=== PATIENT | female | born 1940 | race Caucasian/White ===

== ENCOUNTER → 2017-08-16 | Outpatient (CLI) | payer MEDICARE | LOC: WI 13:39 | PROVIDERS: ATTEND Nurse Practitioner | DX: Z12.31 Encounter for screening mammogram for malignant neoplasm of breast (principal) | CPT/HCPCS: 77063; 77067 ==

== ENCOUNTER → 2017-09-08 | Outpatient (CLI) | payer MEDICARE ==
--- NOTE | 2017-09-08 16:30 | WOMENS IMAGING REPORT ---
EXAM DESCRIPTION: LEFT DIAGNOSTIC MAMMO W/CAD; U/S BREAST UNILAT LIMITED COMPLETED DATE/TIME: 09/08/2017 1:31 pm; 09/08/2017 12:05 pm REASON FOR STUDY: NODULAR DENSITY; LT BREAST N63.23 N63.23 UNSPECIFIED LUMP IN THE LEFT BREAST, LO WER OUTER QUAD COMPARISON: 08/16/2017 and 03/04/2015. TECHNIQUE: True lateral and spot compression MLO and CC images acquired. LIMITATIONS: None. FINDINGS: BREAST: left MASSES: Small round circumscribed mass in the inferior breast. CALCIFICATIONS: No new or suspicious calcifications. ARCHITECTURAL DISTORTION: None. DEVELOPING DENSITY: None. ASYMMETRY: None noted. OTHER: No other significant findings. BREAST ULTRASOUND: TECHNIQUE: Static and dynamic grayscale images acquired of the left breast in the specific areas of c linical/mammographic concern. Selected color Doppler images recorded. ELASTOGRAPHY PERFORMED: No. LIMITATIONS: None. FINDINGS: MASS: Round circumscribed solid mass measuring 5 mm in the 3 to 4 o'clock location. Doppler evaluati on demonstrates flow associated with a mass. ELASTOGRAPHY CHARACTERISTICS: Not applicable. OTHER: No other significant finding. IMPRESSION: Small solid mass. Not present on prior mammogram in 2014. Biopsy should be considered. BREAST DENSITY: a. The breasts are almost entirely fatty. BIRAD: 4 Suspicious. Biopsy should be considered. RECOMMENDATION: RECOMMENDED FOLLOW UP: Birads 4: Biopsy should be performed in the absence of clinic al contraindication. SPECIFIC INTERVENTION/IMAGING/CONSULTATION RECOMMENDED:The suspicious finding(s) amenable to US guide d core/vacuum assisted biopsy. COMMUNICATION:The imaging findings were not discussed with the patient. Her referring provider has be en notified of the findings. COMMENT: The patient has been notified of the results by letter per SA requirements. Additional no tification policies are in place for contacting patient with suspicious or incomplete findings. Quality ID #225: The [employer] recommends an annual screening mammogram for women aged 40 years or over. This facility utilizes a reminder system to ensure that all patients receive reminder letters, and/or direct phone calls for appointments. This includes reminders for routine scr eening mammograms, diagnostic mammograms, or other Breast Imaging Interventions when appropriate. Th is patient will be placed in the appropriate reminder system. The [employer] (ACR) has developed recommendations for screening MRI of the breast s in certain patient populations, to be used in conjunction with mammography. Breast MRI surveillanc e may be appropriate for women with more than 20% lifetime risk of developing breast cancer as deter mined by genetic testing, significant family history of the disease, or history of mantle radiation f or Hodgkins Disease. ACR Practice Guidelines 2008. TECHNICAL DOCUMENTATION: FINDING NUMBER: (1) ASSESSMENT: (1) JOB ID: [id number] [employer]- All Rights Reserved Reading location - IP/workstation name: [email or web address]
--- NOTE | 2017-09-08 16:30 | WOMENS IMAGING REPORT ---
EXAM DESCRIPTION: LEFT DIAGNOSTIC MAMMO W/CAD; U/S BREAST UNILAT LIMITED COMPLETED DATE/TIME: 09/08/2017 1:31 pm; 09/08/2017 12:05 pm REASON FOR STUDY: NODULAR DENSITY; LT BREAST N63.23 N63.23 UNSPECIFIED LUMP IN THE LEFT BREAST, LO WER OUTER QUAD COMPARISON: 08/16/2017 and 03/04/2015. TECHNIQUE: True lateral and spot compression MLO and CC images acquired. LIMITATIONS: None. FINDINGS: BREAST: left MASSES: Small round circumscribed mass in the inferior breast. CALCIFICATIONS: No new or suspicious calcifications. ARCHITECTURAL DISTORTION: None. DEVELOPING DENSITY: None. ASYMMETRY: None noted. OTHER: No other significant findings. BREAST ULTRASOUND: TECHNIQUE: Static and dynamic grayscale images acquired of the left breast in the specific areas of c linical/mammographic concern. Selected color Doppler images recorded. ELASTOGRAPHY PERFORMED: No. LIMITATIONS: None. FINDINGS: MASS: Round circumscribed solid mass measuring 5 mm in the 3 to 4 o'clock location. Doppler evaluati on demonstrates flow associated with a mass. ELASTOGRAPHY CHARACTERISTICS: Not applicable. OTHER: No other significant finding. IMPRESSION: Small solid mass. Not present on prior mammogram in 2014. Biopsy should be considered. BREAST DENSITY: a. The breasts are almost entirely fatty. BIRAD: 4 Suspicious. Biopsy should be considered. RECOMMENDATION: RECOMMENDED FOLLOW UP: Birads 4: Biopsy should be performed in the absence of clinic al contraindication. SPECIFIC INTERVENTION/IMAGING/CONSULTATION RECOMMENDED:The suspicious finding(s) amenable to US guide d core/vacuum assisted biopsy. COMMUNICATION:The imaging findings were not discussed with the patient. Her referring provider has be en notified of the findings. COMMENT: The patient has been notified of the results by letter per SA requirements. Additional no tification policies are in place for contacting patient with suspicious or incomplete findings. Quality ID #225: The [employer] recommends an annual screening mammogram for women aged 40 years or over. This facility utilizes a reminder system to ensure that all patients receive reminder letters, and/or direct phone calls for appointments. This includes reminders for routine scr eening mammograms, diagnostic mammograms, or other Breast Imaging Interventions when appropriate. Th is patient will be placed in the appropriate reminder system. The [employer] (ACR) has developed recommendations for screening MRI of the breast s in certain patient populations, to be used in conjunction with mammography. Breast MRI surveillanc e may be appropriate for women with more than 20% lifetime risk of developing breast cancer as deter mined by genetic testing, significant family history of the disease, or history of mantle radiation f or Hodgkins Disease. ACR Practice Guidelines 2008. TECHNICAL DOCUMENTATION: FINDING NUMBER: (1) ASSESSMENT: (1) JOB ID: [id number] [employer]- All Rights Reserved Reading location - IP/workstation name: [facility]
== END ==
LOC: WI 10:49
PROVIDERS: ATTEND Nurse Practitioner
DX: N63.23 Unspecified lump in the left breast, lower outer quadrant (principal)
CPT/HCPCS: 76642

== ENCOUNTER 2017-12-06 14:01 | Emergency (ER) | payer MEDICARE ==
--- NOTE | 2017-12-06 15:38 | ER Document Report ---
ED Medical Screen (RME) - General Chief Complaint: Leg Pain Stated Complaint: LEG CRAMPING Time Seen by Provider: 12/06/17 15:33 TRAVEL OUTSIDE OF THE [place] IN LAST 30 DAYS: No - HPI Notes: 12/06/17 15:34 Patient is a 76-year-old female with a history of chronic back pain, restless leg syndrome, chronic bilateral lower extremity edema, recent lumpectomy of the left breast (November 14) who presents to the ED complaining of left calf pain and cramping 1 week that worsened over the last day. Pt noted a "knot" to the area the other day. Patient states that she is able to ambulate, but it does worsen her symptoms at times. Patient states that she has not noticed any more swelling than normal. She has otherwise been eating and drinking without any difficulties. She has been urinating normally and having normal bowel movements. She denies any recent illness. Patient has not been out in the sun for long periods of time. Denies any headache, fever, neck pain, URI, sore throat, chest pain, palpitations, syncope, cough, shortness of breath, wheeze, dyspnea, abdominal pain, nausea/vomiting/diarrhea, urinary retention, dysuria, hematuria, loss of control of bowel or bladder, saddle anesthesia, muscle paralysis/weakness, or rash. I have treated and performed a rapid initial assessment of this patient. A comprehensive ED assessment and evaluation of the patient, analysis of test results and completion of medical decision making process will be conducted by additional ED providers. PHYSICAL EXAMINATION: GENERAL: Well-appearing, well-nourished and in no acute distress. A&Ox4. Answers questions appropriately. LUNGS: Breath sounds clear to auscultation bilaterally and equal. No wheezes rales or rhonchi. HEART: Regular rate and rhythm without murmurs, rubs, gallops. Extremities: 2-3+ pitting edema b/l. 1+ pulses b/l, difficult to palpate with the edema. + mild calf tenderness with chantel on the left. NEUROLOGICAL: Normal speech, sensation/motor intact. PSYCH: Normal mood, normal affect. - Related Data Allergies/Adverse Reactions: sulfamethoxazole [From Bactrim] Allergy (Verified 12/09/15 12:09) trimethoprim [From Bactrim] Allergy (Verified 12/09/15 12:09) HTC Allergy (Uncoded 12/09/15 12:09) Past Medical History - Social History Chew tobacco use (# tins/day): No Frequency of alcohol use: None Drug Abuse: None - Past Medical History Cardiac Medical History: Reports: Hx Hypertension Renal/ Medical History: Denies: Hx Peritoneal Dialysis Musculoskeltal Medical History: Reports Hx Arthritis Past Surgical History: Reports: Hx Breast Surgery - left lumpnectomy, Hx Cardiac Surgery - aortic valve replaced, Hx Cholecystectomy, Hx Open Heart Surgery, Hx Orthopedic Surgery - Immunizations Hx Diphtheria, Pertussis, Tetanus Vaccination: Yes Physical Exam - Vital signs Vitals: Temp Pulse Resp BP Pulse Ox 98.6 F 79 20 152/60 H 94 12/06/17 14:13 12/06/17 14:13 12/06/17 14:13 12/06/17 14:13 12/06/17 14:13 Course - Vital Signs Vital signs: Temp Pulse Resp BP Pulse Ox 98.6 F 79 20 152/60 H 94 12/06/17 14:13 12/06/17 14:13 12/06/17 14:13 12/06/17 14:13 12/06/17 14:13 Doctor's Discharge - Discharge Referrals: SCOUT VILLAR NP [Primary Care Provider] - Follow up as needed
[2017-12-06 16:03] LABS: ABSOLUTE BASOPHILS # (AUTO) 0.1 10^3/uL (0.0-0.2); ABSOLUTE EOSINOPHILS # (AUTO) 0.2 10^3/uL (0.0-0.6); ABSOLUTE LYMPHOCYTES (AUTO) 0.9 10^3/uL (0.5-4.7); ABSOLUTE MONOCYTES (AUTO) 0.4 10^3/uL (0.1-1.4); ABSOLUTE NEUT (AUTO) 4.3 10^3/uL (1.7-8.2); EOSINOPHILS % (AUTO) 2.6 % (0-6); HEMATOCRIT 35.2 % (36.0-47.0); HEMOGLOBIN 11.8 g/dL (12.0-15.5); LYMPHOCYTES % (AUTO) 15.2 % (13-45); MEAN CORPUSCULAR HGB CONC 33.7 g/dL (32.0-36.0); MEAN CORPUSCULAR VOLUME 98 fl (80-97); MONOCYTES % (AUTO) 7.1 % (3-13); PLATELET COUNT 253 10^3/uL (150-450); RED BLOOD COUNT 3.58 10^6/uL (3.72-5.28); RED CELL DISTRIBUTION WIDTH 13.9 % (11.5-14.0); SEGMENTED NEUTROPHILS % (AUTO) 74.1 % (42-78); TOTAL CELLS COUNTED % (AUTO) 100 %; WHITE BLOOD COUNT 5.8 10^3/uL (4.0-10.5)
[2017-12-06 16:25] LABS: ALANINE AMINOTRANSFERASE 27 U/L (9-52); ALBUMIN 4.3 g/dL (3.5-5.0); ALKALINE PHOSPHATASE 74 U/L (38-126); ANION GAP 10 (5-19); ASPARTATE AMINO TRANSFERASE 35 U/L (14-36); BILIRUBIN,DIRECT 0.4 mg/dL (0.0-0.4); BILIRUBIN,TOTAL 0.5 mg/dL (0.2-1.3); BLOOD UREA NITROGEN 21 mg/dL (7-20); CALCIUM 10.4 mg/dL (8.4-10.2); CARBON DIOXIDE 30 mmol/L (22-30); CHLORIDE 99 mmol/L (98-107); GLUCOSE 102 mg/dL (75-110); POTASSIUM 5.1 mmol/L (3.6-5.0); SODIUM 138.7 mmol/L (137-145); TOTAL PROTEIN 7.9 g/dL (6.3-8.2)
--- NOTE | 2017-12-06 18:14 | ER Document Report ---
ED General - General Chief Complaint: Leg Pain Stated Complaint: LEG CRAMPING Time Seen by Provider: 12/06/17 15:33 TRAVEL OUTSIDE OF THE [place] IN LAST 30 DAYS: No - HPI Notes: Patient is a 76-year-old female with a history of chronic back pain, restless leg syndrome, chronic bilateral lower extremity edema, recent lumpectomy of the left breast (November 14) who presents to the ED complaining of left calf pain and cramping 1 week that worsened over the last day. Pt noted a "knot" to the area the other day. Patient states that she is able to ambulate, but it does worsen her symptoms at times. Patient states that she has not noticed any more swelling than normal. She has otherwise been eating and drinking without any difficulties. She has been urinating normally and having normal bowel movements. She denies any recent illness. Patient has not been out in the sun for long periods of time. Denies any headache, fever, neck pain, URI, sore throat, chest pain, palpitations, syncope, cough, shortness of breath, wheeze, dyspnea, abdominal pain, nausea/vomiting/diarrhea, urinary retention, dysuria, hematuria, loss of control of bowel or bladder, saddle anesthesia, muscle paralysis/weakness, or rash. - Related Data Allergies/Adverse Reactions: sulfamethoxazole [From Bactrim] Allergy (Verified 12/09/15 12:09) trimethoprim [From Bactrim] Allergy (Verified 12/09/15 12:09) HTC Allergy (Uncoded 12/09/15 12:09) Past Medical History - Social History Smoking Status: Never Smoker Chew tobacco use (# tins/day): No Frequency of alcohol use: None Drug Abuse: None Family History: Reviewed & Not Pertinent Patient has suicidal ideation: No Patient has homicidal ideation: No - Past Medical History Cardiac Medical History: Reports: Hx Hypertension Renal/ Medical History: Denies: Hx Peritoneal Dialysis Musculoskeltal Medical History: Reports Hx Arthritis Past Surgical History: Reports: Hx Breast Surgery - left lumpnectomy, Hx Cardiac Surgery - aortic valve replaced, Hx Cholecystectomy, Hx Open Heart Surgery, Hx Orthopedic Surgery - Immunizations Hx Diphtheria, Pertussis, Tetanus Vaccination: Yes Review of Systems - Review of Systems -: Yes All other systems reviewed and negative Physical Exam - Vital signs Vitals: Temp Pulse Resp BP Pulse Ox 98.6 F 79 20 152/60 H 94 12/06/17 14:13 12/06/17 14:13 12/06/17 14:13 12/06/17 14:13 12/06/17 14:13 - Notes Notes: PHYSICAL EXAMINATION: GENERAL: Well-appearing, well-nourished and in no acute distress. A&Ox4. Answers questions appropriately. LUNGS: Breath sounds clear to auscultation bilaterally and equal. No wheezes rales or rhonchi. HEART: Regular rate and rhythm without murmurs, rubs, gallops. MS: Lt leg: FROM. Strength 5+/5. N/V intact distal. No bony tenderness. Extremities: 2-3+ pitting edema b/l. 1+ pulses b/l, difficult to palpate with the edema. + mild calf tenderness with chantel on the left. NEUROLOGICAL: Normal speech, sensation/motor intact. Gait normal. Reflexes 2+. PSYCH: Normal mood, normal affect. Course - Re-evaluation Re-evalutation: 12/06/17 18:10 Patient is an afebrile, well-hydrated, 76-year-old female who presents to the ED with left leg pain unspecified. Vitals are acceptable. PE is otherwise unremarkable for any neurovascular compromise, obvious tendon/ligament rupture, obvious fracture/dislocation, septic joint, compartment syndrome. Venous Doppler was unofficially negative for any DVT at this time. She has no significant tachycardia, tachypnea, or hypoxia. She has never had any chest pain or shortness of breath associated. She is nontoxic-appearing. CBC, CMP were unremarkable for any acute pathology. Patient was unable to provide us with a urine, but is otherwise asymptomatic. She is tolerating p.o. without difficulties. No other labs or imaging warranted at this time based on H&P. Patient states that she wants to go home and is ready to go home at this time. Low suspicion for any other sepsis, meningitis, DVT, disc herniation causing severe spinal stenosis. Patient is aware that her condition can change from initial presentation and she needs to monitor symptoms closely and seek medical attention with any acute changes. Conservative measures otherwise for symptoms. Recheck with your PCM in 2-3 days. Return to the ED with any worsening/concerning symptoms otherwise as reviewed discharge. Patient is in agreement. - Vital Signs Vital signs: Temp Pulse Resp BP Pulse Ox 98.6 F 79 20 152/60 H 94 12/06/17 14:13 12/06/17 14:13 12/06/17 14:13 12/06/17 14:13 12/06/17 14:13 - Laboratory Result Diagrams: 12/06/17 15:40 12/06/17 15:40 Laboratory results interpreted by me: 12/06/17 12/06/17 15:40 15:40 RBC 3.58 L Hgb 11.8 L Hct 35.2 L MCV 98 H Potassium 5.1 H BUN 21 H Calcium 10.4 H Discharge - Discharge Clinical Impression: Left leg pain Condition: Stable Disposition: HOME, SELF-CARE Instructions: Leg Pain Nonspecific ([facility]), Leg Cramps ([facility]) Additional Instructions: Rest, Ice, Compression, Elevation Tylenol/ibuprofen as needed Light stretches daily Strength exercises as able Moist heat and massage may help F/u with your PCP in 2-3days for a recheck* Consider consult(s) with Orthopedics/physical therapy for ongoing/worsening symptoms Return to the ED with any worsening symptoms and/or development of fever, headache, chest pain, palpitations, syncope, shortness of breath, trouble breathing, abdominal pain, n/v/d, blood in stool/urine, loss of control of bowel /bladder, urinary retention, muscle weakness/paralysis, saddle anesthesia, numbness/tingling, or other worsening symptoms that are concerning to you. Forms: Elevated Blood Pressure Referrals: SCOUT VILLAR NP [Primary Care Provider] - 12/08/17
[2017-12-06 18:45] VITALS: BP 153/62
--- NOTE | 2017-12-07 08:10 | XCELERA REPORT ---
[address] [address] Lower Extremity Venous Evaluation Name: MELVIN ANNE Age: 76 yrs Gender: Female : 1940 Patient Status: Emergency Patient Location: ER Study Date: 12/06/2017 04:42 PM Procedure: Color flow and duplex imaging of the veins of the left lower extremity as well as the right Common Femoral vein. Reason For Study: Lt calf pain/cramping Ordering Physician: MELISSA ROBB PA-C Performed By: Kathy Schwartz Right Sided Venous Evaluation The right common femoral vein is fully compressible. Spontaneous and phasic flow is present in the right common femoral vein. Left Sided Venous Evaluation Normal vessel filling wall to wall, compression and augmentation as well as Colour flow down to the infrageniculate veins. Interpretation Summary No duplex evidence of DVT or obstruction in the left lower extremity nor in the right Common Femoral vein. : MELISSA ROBB PA-C > Hussain Cason
== END 2017-12-06 18:44 | disposition home or self-care (01) ==
LOC: ER 14:01
DX: M79.605 Pain in left leg (principal); G25.81 Restless legs syndrome; I10 Essential (primary) hypertension; Z88.3 Allergy status to other anti-infective agents; Z90.49 Acquired absence of other specified parts of digestive tract; Z95.2 Presence of prosthetic heart valve
CPT/HCPCS: 36415; 80053; 83735; 85025; 93971; 99284

== ENCOUNTER 2017-12-14 20:35 | Inpatient (IN) | payer MEDICARE ==
[2017-12-14 22:07] LABS: ABSOLUTE EOSINOPHILS # (AUTO) 0.1 10^3/uL (0.0-0.6); ABSOLUTE LYMPHOCYTES (AUTO) 0.8 10^3/uL (0.5-4.7); ABSOLUTE MONOCYTES (AUTO) 0.5 10^3/uL (0.1-1.4); ABSOLUTE NEUT (AUTO) 4.5 10^3/uL (1.7-8.2); BASOPHILS % (AUTO) 0.8 % (0-2); EOSINOPHILS % (AUTO) 2.4 % (0-6); HEMOGLOBIN 11.1 g/dL (12.0-15.5); LYMPHOCYTES % (AUTO) 12.7 % (13-45); MEAN CORPUSCULAR HEMOGLOBIN 32.8 pg (27.0-33.4); MEAN CORPUSCULAR HGB CONC 33.6 g/dL (32.0-36.0); MEAN CORPUSCULAR VOLUME 98 fl (80-97); MONOCYTES % (AUTO) 8.7 % (3-13); PLATELET COUNT 261 10^3/uL (150-450); RED BLOOD COUNT 3.38 10^6/uL (3.72-5.28); RED CELL DISTRIBUTION WIDTH 13.9 % (11.5-14.0); SEGMENTED NEUTROPHILS % (AUTO) 75.4 % (42-78); TOTAL CELLS COUNTED % (AUTO) 100 %; WHITE BLOOD COUNT 5.9 10^3/uL (4.0-10.5)
[2017-12-14 22:16] LABS: ALANINE AMINOTRANSFERASE 25 U/L (9-52); ALKALINE PHOSPHATASE 65 U/L (38-126); ANION GAP 10 (5-19); ASPARTATE AMINO TRANSFERASE 28 U/L (14-36); BILIRUBIN,DIRECT 0.3 mg/dL (0.0-0.4); BILIRUBIN,TOTAL 0.3 mg/dL (0.2-1.3); BLOOD UREA NITROGEN 15 mg/dL (7-20); CALCIUM 9.9 mg/dL (8.4-10.2); CARBON DIOXIDE 29 mmol/L (22-30); CHLORIDE 99 mmol/L (98-107); GLUCOSE 102 mg/dL (75-110); POTASSIUM 4.7 mmol/L (3.6-5.0); SODIUM 138.2 mmol/L (137-145); TOTAL PROTEIN 7.3 g/dL (6.3-8.2)
--- NOTE | 2017-12-14 22:36 | RADIOLOGY REPORT (SQ) ---
Chest single view on 12/14/2017 CLINICAL INDICATION: Shortness of breath COMPARISON: None FINDINGS: The patient is status post median sternotomy. Vascular calcification is noted in the aorta. Mild chronic interstitial changes are noted. The lungs are otherwise clear. Cardiac, hilar and mediastinal contours are within normal limits. Pulmonary vascularity is within normal limits. Degenerative changes are noted in the shoulders. IMPRESSION: No active disease.
[2017-12-14] MEDS ORDERED: DIAZEPAM 2 MG TABLET PO ONE (23:00)
--- NOTE | 2017-12-14 23:27 | RADIOLOGY REPORT (SQ) ---
EXAM DESCRIPTION: XR HIP 2 OR MORE VIEWS COMPLETED DATE/TME: 12/14/2017 22:59 CLINICAL HISTORY: 76 years, Female, unable to bear wt/hip pain COMPARISON: None. FINDINGS: Single view of the pelvis and lateral view of the left hip. Osteopenia. No acute fracture identified. Mild bilateral hip joint space narrowing. Degenerative change of the sacroiliac joints. IMPRESSION: No acute fracture identified. 2010 [employer]- All Rights Reserved
--- NOTE | 2017-12-15 00:42 | ER Document Report ---
ED Extremity Problem, Lower - General Chief Complaint: Leg Pain Stated Complaint: LEG PAIN Time Seen by Provider: 12/14/17 20:59 Information source: Patient Notes: 76-year-old female patient presents with complaints of left leg pain and pain. Patient reports that this is been an ongoing issue for several weeks now. Patient reports that she was seen here and had a venous Doppler done which was negative on December 06. Patient reports that the leg swelling has significantly gotten worse and now her leg is externally rotated and she states that she is unable to bear any weight. Patient reports that she has been seen by orthopedic and is taking muscle relaxers for her chronic leg pain however she states that this is gotten significantly worse. Patient denies any fevers, nausea, vomiting or diarrhea. Patient denies any other symptoms other than this leg pain with swelling. TRAVEL OUTSIDE OF THE [place] IN LAST 30 DAYS: No - Related Data Allergies/Adverse Reactions: sulfamethoxazole [From Bactrim] Allergy (Verified 12/09/15 12:09) trimethoprim [From Bactrim] Allergy (Verified 12/09/15 12:09) HTC Allergy (Uncoded 12/09/15 12:09) Past Medical History - General Information source: Patient - Social History Smoking Status: Never Smoker Chew tobacco use (# tins/day): No Frequency of alcohol use: Rare Drug Abuse: None Family History: Reviewed & Not Pertinent Patient has suicidal ideation: No Patient has homicidal ideation: No - Past Medical History Cardiac Medical History: Reports: Hx Hypertension Renal/ Medical History: Denies: Hx Peritoneal Dialysis Musculoskeltal Medical History: Reports Hx Arthritis Past Surgical History: Reports: Hx Breast Surgery - left lumpnectomy, Hx Cardiac Surgery - aortic valve replaced, Hx Cholecystectomy, Hx Open Heart Surgery, Hx Orthopedic Surgery - Immunizations Hx Diphtheria, Pertussis, Tetanus Vaccination: Yes Review of Systems - Review of Systems Constitutional: No symptoms reported EENT: No symptoms reported Cardiovascular: No symptoms reported Respiratory: No symptoms reported Gastrointestinal: No symptoms reported Genitourinary: No symptoms reported Female Genitourinary: No symptoms reported Musculoskeletal: See HPI Skin: No symptoms reported Hematologic/Lymphatic: No symptoms reported Neurological/Psychological: No symptoms reported Physical Exam - Vital signs Vitals: Temp Pulse Resp BP Pulse Ox 97.2 F 83 17 168/72 H 96 12/14/17 20:35 12/14/17 20:35 12/14/17 20:35 12/14/17 20:35 12/14/17 20:35 - Notes Notes: PHYSICAL EXAMINATION: GENERAL: Well-appearing, well-nourished and in no acute distress. HEAD: Atraumatic, normocephalic. EYES: Pupils equal round and reactive to light, extraocular movements intact, conjunctiva are normal. ENT: Nares patent, oropharynx clear without exudates. Moist mucous membranes. NECK: Normal range of motion, supple without lymphadenopathy LUNGS: Breath sounds clear to auscultation bilaterally and equal. No wheezes rales or rhonchi. HEART: Regular rate and rhythm without murmurs ABDOMEN: Soft, nontender, nondistended abdomen. No guarding, no rebound. No masses appreciated. Female : deferred Musculoskeletal: Normal range of motion, edema to bilateral lower extremities, worse to left lower extremity. Left leg appears to be externally rotated, patient reports that she cannot turn it inward. NEUROLOGICAL: Cranial nerves grossly intact. Normal speech, normal gait. Normal sensory, motor exams PSYCH: Normal mood, normal affect. SKIN: Warm, Dry, normal turgor, no rashes or lesions noted. Course - Re-evaluation Re-evalutation: 76-year-old female presenting with left leg pain and swelling. There is no erythema. Patient was seen here on December 06 for the same issue however patient reports that it has gotten worse. Venous Doppler was negative at that time. Will repeat venous Doppler today. Patient was initially seen by triage provider who ordered a CT of her L-spine and pelvis without contrast both of these are unremarkable. Left hip x-ray is normal. CBC and comprehensive metabolic panel are within normal limits. Venous Doppler of left lower extremity is negative. Patient is unable to bear any weight on this extremity therefore will contact hospitalist for possible observation. Hospitalist agrees to admit patient for observation. Patient remains stable during visit to emergency department, vital signs are unremarkable. Patient is agreeable to this plan of care. - Vital Signs Vital signs: Temp Pulse Resp BP Pulse Ox 98.1 F 91 18 141/57 H 91 L 12/17/17 00:00 12/17/17 00:00 12/17/17 00:00 12/17/17 00:00 12/17/17 00:00 - Laboratory Result Diagrams: 12/14/17 21:50 12/15/17 04:50 Laboratory results interpreted by me: 12/14/17 21:50 RBC 3.38 L Hgb 11.1 L Hct 33.0 L MCV 98 H Lymphocytes % 12.7 L Discharge - Discharge Clinical Impression: Leg pain, left, Left leg swelling Condition: Stable Disposition: ADMITTED OBSERVATION Admitting Provider: Hospitalist Unit Admitted: Medical Floor
[2017-12-15] MEDS ORDERED: ONDANSETRON HCL INJ/PF 4 MG/2 ML SDV IV PRN (00:49)
[2017-12-15] MEDS ORDERED: CYCLOBENZAPRINE HCL 10 MG TABLET PO ONE (01:00)
--- NOTE | 2017-12-15 01:14 | PDOC H&P ---
History of Present Illness Admission Date/PCP: SCOUT VILLAR NP History of Present Illness: MELVIN ANNE is a 76 year old female patient with past medical history of chronic back pain, hypertension, obesity and restless leg syndrome presents with chief complaint of inability to use her left leg. She reports 2 weeks ago she had a spasm of her left leg and then the last 3 days she is not able to walk. She claims her left foot is externally rotated. Patient lives by herself and she is independent for her activities of daily living. She denies any fall or trauma to her back. No history of respiratory tract viral infection. No fever chills, cough, palpitation or diaphoresis. No nausea, vomiting or diarrhea. Her labs and x-rays, Doppler ultrasound of the affected leg are unremarkable. Past Medical History Cardiac Medical History: Reports: Hypertension Musculoskeltal Medical History: Reports: Arthritis Past Surgical History Past Surgical History: Reports: Cholecystectomy, Orthopedic Surgery Social History Smoking Status: Never Smoker Frequency of Alcohol Use: None Hx Recreational Drug Use: No Drugs: None - Advance Directive Resuscitation Status: Full Code Family History Family History: Reviewed & Not Pertinent Parental Family History Reviewed: Yes Children Family History Reviewed: Yes Sibling(s) Family History Reviewed.: Yes Medication/Allergy Home Medications: Oxycodone HCl/Acetaminophen [Percocet 5-325 mg Tablet] 1 tab PO ASDIR PRN #15 tablet 12/09/15 Prednisone [Deltasone 10 mg Tablet] 10 mg PO ASDIR PRN #21 tablet 12/09/15 Allergies/Adverse Reactions: sulfamethoxazole [From Bactrim] Allergy (Verified 12/09/15 12:09) trimethoprim [From Bactrim] Allergy (Verified 12/09/15 12:09) HTC Allergy (Uncoded 12/09/15 12:09) Review of Systems Constitutional: PRESENT: as per HPI Eyes: PRESENT: as per HPI Cardiovascular: PRESENT: as per HPI Gastrointestinal: PRESENT: as per HPI Neurological: PRESENT: as per HPI Psychiatric: PRESENT: as per HPI Physical Exam Vital Signs: Temp Pulse Resp BP Pulse Ox 97.2 F 83 13 155/64 H 95 12/14/17 20:35 12/14/17 20:35 12/14/17 23:01 12/14/17 23:01 12/14/17 23:01 Intake & Output 12/13/17 12/14/1712/15/18 06:59 06:59 06:59 Weight 105.687 kg General appearance: PRESENT: no acute distress, well-developed, well-nourished Head exam: PRESENT: atraumatic, normocephalic Eye exam: PRESENT: conjunctiva pink, EOMI, PERRLA. ABSENT: scleral icterus Neck exam: ABSENT: carotid bruit, JVD, lymphadenopathy, thyromegaly Respiratory exam: PRESENT: clear to auscultation fabrice. ABSENT: rales, rhonchi, wheezes Cardiovascular exam: PRESENT: RRR. ABSENT: diastolic murmur, rubs, systolic murmur GI/Abdominal exam: PRESENT: normal bowel sounds, soft. ABSENT: distended, guarding, mass, organolmegaly, rebound, tenderness Extremities exam: PRESENT: other - Stigmata of venous stasis bilateral Neurological exam: PRESENT: alert, awake, oriented to time, oriented to situation, reflexes normal Results Laboratory Results: 12/14/17 21:50 12/14/17 21:50 12/14/17 12/14/17 21:50 21:50 WBC 5.9 RBC 3.38 L Hgb 11.1 L Hct 33.0 L MCV 98 H MCH 32.8 MCHC 33.6 RDW 13.9 Plt Count 261 Seg Neutrophils % 75.4 Lymphocytes % 12.7 L Monocytes % 8.7 Eosinophils % 2.4 Basophils % 0.8 Absolute Neutrophils 4.5 Absolute Lymphocytes 0.8 Absolute Monocytes 0.5 Absolute Eosinophils 0.1 Absolute Basophils 0.0 Sodium 138.2 Potassium 4.7 Chloride 99 Carbon Dioxide 29 Anion Gap 10 BUN 15 Creatinine 0.78 Est GFR ( Amer) > 60 Est GFR (Non-Af Amer) > 60 Glucose 102 Calcium 9.9 Total Bilirubin 0.3 AST 28 ALT 25 Alkaline Phosphatase 65 Total Protein 7.3 Albumin 4.0 12/14/17 21:50 NT-Pro-B Natriuret Pep 338 Impressions: Chest X-Ray 12/14/17 21:31 IMPRESSION: No active disease. Hip X-Ray 12/14/17 22:59 IMPRESSION: No acute fracture identified. 2010 [employer]- All Rights Reserved Assessment & Plan - Diagnosis (1) Muscle spasm of left lower extremity Is this a current diagnosis for this admission?: Yes Plan: The etiology is unclear for me. I will start her on Flexeril 10 mg 3 times daily and we will consult physical therapy to evaluate her. In the meantime we will request CT scan of the lumbar spine and pelvis. (2) Hypertension Qualifiers: Hypertension type: essential hypertension Qualified Code(s): I10 - Essential (primary) hypertension Is this a current diagnosis for this admission?: Yes Plan: Continue metoprolol 25 mg twice a day (3) Obesity Qualifiers: Obesity type: due to excess calories Obesity classification: pediatric obesity Is this a current diagnosis for this admission?: Yes Plan: Lifestyle modification advised.
--- NOTE | 2017-12-15 01:28 | RADIOLOGY REPORT (SQ) ---
EXAM DESCRIPTION: 1. CT lumbar spine without contrast. 2. CT of the pelvis without contrast. COMPLETED DATE/TME: 12/15/2017 00:40 CLINICAL HISTORY: Left leg and back pain. COMPARISON: None Available. TECHNIQUE: 1. CT lumbar spine without contrast. 2. CT of the pelvis without IV contrast. Evaluation of the solid organs and vasculature is suboptimal due to lack of IV contrast. DLP: 2551.22 mGy-cm FINDINGS: Lumbar spine CT: Alignment of the lumbar spine is maintained without evidence of subluxation. Age-indeterminate compression deformity of the L2 vertebral body with approximately 30% loss of anterior vertebral body height. No cortical step-off or CT evidence of acuity. Approximately 10% anterior compression deformity involving the T12 and L1 vertebral bodies. No CT evidence of acuity. Remaining vertebral body heights preserved. Prevertebral soft tissues are unremarkable. Moderate to severe loss of intervertebral disc height with endplate spondylosis and facet arthropathy throughout the visualized thoracic and lumbar spine. Multilevel ligamentum flavum hypertrophy. Broad-based posterior disc bulges at L3-4 through L5/S1 with effacement of the thecal sac at these levels. Multilevel moderate to severe osseous neural foraminal narrowing. Diffuse osteopenia. Degenerative spurring and vacuum phenomenon of the sacroiliac joints. Aortoiliac atherosclerosis. Prior cholecystectomy. Scattered diverticula of the visualized colon. No other abnormalities of visualized abdominal soft tissues identified. Pelvis: Bladder: Urinary bladder is unremarkable. Bowel: Scattered diverticula throughout the visualized colon. No dilated loops of the visualized large or small bowel. Appendix: Normal appendix. Pelvis: Hysterectomy. Aortoiliac atherosclerosis. Diffuse osteopenia. No fracture identified. Degenerative spondylosis and vacuum disc phenomenon of the sacroiliac joints. Moderate bilateral hip joint space narrowing and osteophytic spurring. Mild degenerative change of the pubic symphysis. Degenerative change of the visualized lumbar spine. IMPRESSION: 1. Age-indeterminate compression deformities of the T12, L1, and L2 vertebral bodies as detailed above without evidence of acuity by CT criteria. If the patient has severe back pain or point tenderness at these locations MRI could provide more complete characterization for acute compression fracture. 2. No acute fracture the pelvis identified. 3. Osteopenia. 4. Severe degenerative change of the lumbar spine, sacroiliac joints, and hips. 5. Diverticulosis. This exam was performed according to our departmental dose-optimization program, which includes automated exposure control, adjustment of the mA and/or kV according to patient size and/or use of iterative reconstruction technique.
[2017-12-15] MEDS: OXYCODONE-ACETAMINOPHEN 5-325 MG TABLET PO PRN ×2 (03:36→11:15)
[2017-12-15 05:28] LABS: ANION GAP 12 (5-19); BLOOD UREA NITROGEN 12 mg/dL (7-20); CALCIUM 9.5 mg/dL (8.4-10.2); CARBON DIOXIDE 26 mmol/L (22-30); CHLORIDE 101 mmol/L (98-107); GLUCOSE 135 mg/dL (75-110); POTASSIUM 4.4 mmol/L (3.6-5.0); SODIUM 139.2 mmol/L (137-145)
[2017-12-15] MEDS: LANSOPRAZOLE 30 MG TAB.RAP.DR PO SCH (05:46)
[2017-12-15] MEDS ORDERED: HEPARIN SOD (PORCINE) 5,000 UNIT/ML 1 ML SYRINGE SUBCUT SCH (06:00)
--- NOTE | 2017-12-15 08:03 | XCELERA REPORT ---
[address] [address] Lower Extremity Venous Evaluation Name: MELVIN ANNE Age: 76 yrs Gender: Female : 1940 Patient Status: Emergency Patient Location: ER Study Date: 12/14/2017 10:25 PM Procedure: Color flow and duplex imaging of the veins of the left lower extremity as well as the right Common Femoral vein. Reason For Study: left leg swelling Ordering Physician: DAMION MONTIEL Performed By: Isauro Turk Right Sided Venous Evaluation The right common femoral vein is fully compressible. Spontaneous and phasic flow is present in the right common femoral vein. Left Sided Venous Evaluation Normal vessel filling wall to wall, compression and augmentation as well as Colour flow down to the infrageniculate veins. Interpretation Summary No duplex evidence of DVT or obstruction in the left lower extremity nor in the right Common Femoral vein. : DAMION MONTIEL > Hussain Cason
[2017-12-15] MEDS: CYCLOBENZAPRINE HCL 10 MG TABLET PO SCH ×2 (08:41→21:40)
[2017-12-15] MEDS: ENOXAPARIN SODIUM INJ 40 MG/0.4 ML DISP.SYRIN SUBCUT SCH (08:41)
[2017-12-15 09:13] LABS: PHOSPHORUS 3.6 mg/dL (2.5-4.5)
[2017-12-15] MEDS ORDERED: FENTANYL CITRATE INJ/PF 100 MCG/2 ML AMPUL ONE (10:04)
[2017-12-15] MEDS ORDERED: FENTANYL CITRATE INJ/PF 100 MCG/2 ML AMPUL IV PRN (11:49)
[2017-12-15] MEDS ORDERED: LORAZEPAM 0.5 MG TABLET PO PRN (11:52)
[2017-12-15] MEDS ORDERED: HYDROCODONE/ACETAMINOPHEN 5-325 MG TABLET PO PRN (11:54)
[2017-12-15] MEDS ORDERED: HYDROCODONE/ACETAMINOPHEN 5-325 MG TABLET ONE (14:59)
[2017-12-15] MEDS: PRAMIPEXOLE DI-HCL 0.5 MG TABLET PO SCH ×2 (15:30→17:15)
[2017-12-15] MEDS: MULTIVITAMIN TABLET PO SCH (15:30)
--- NOTE | 2017-12-15 17:08 | PDOC PROGRESS REPORT ---
Subjective Progress Note for:: 12/15/17 Subjective:: The patient is a 76-year-old female with past medical history of Chronic back pain Hypertension Obesity Restless leg syndrome. She presented to the emergency room with 2 week history of left leg spasm and for the past 3 days she reports being unable to walk. No history of trauma or fall. No recent illness. Left hip x-ray showed degenerative changes of the sacroiliac joints and mild bilateral hip joint space narrowing and osteopenia, no fracture. CT of the lumbar spine and pelvis showed age indeterminate compression deformities of T12-L1 and L2, does not appear to be acute. No acute fracture of the pelvis identified. Severe degenerative change of the lumbar spine sacroiliac joints and hips was seen. She was started on Flexeril and Percocet and physical therapy evaluation has been requested. When I saw her this morning she was complaining of severe pain in her left leg. This improved with IV fentanyl. Dr. Cr from pain management evaluated the patient. She needs an MRI of the lumbar spine. This is all likely secondary to radiculopathy from degenerative disc disease. She has a porcine aortic valve however this needs to be confirmed and unfortunately cannot be done until next week. She may benefit from an epidural steroid injection which Dr. Cr may consider if pain is still uncontrolled despite maximal medical management Reason For Visit: LEFT LEG SPASM Physical Exam Vital Signs: Temp Pulse Resp BP Pulse Ox 98.4 F 80 17 147/50 H 97 12/15/17 02:30 12/15/17 02:30 12/15/17 02:30 12/15/17 02:30 12/15/17 02:30 Intake & Output 12/14/17 12/15/17 12/16/17 06:59 06:59 06:59 Weight 105.6 kg Results Laboratory Results: 12/15/17 04:50 12/15/17 04:50 Sodium 139.2 Potassium 4.4 Chloride 101 Carbon Dioxide 26 Anion Gap 12 BUN 12 Creatinine 0.75 Est GFR ( Amer) > 60 Est GFR (Non-Af Amer) > 60 Glucose 135 H Calcium 9.5 Impressions: Chest X-Ray 12/14/17 21:31 IMPRESSION: No active disease. Hip X-Ray 12/14/17 22:59 IMPRESSION: No acute fracture identified. 2010 [employer]- All Rights Reserved Lumbar Spine CT 12/15/17 00:40 IMPRESSION: 1. Age-indeterminate compression deformities of the T12, L1, and L2 vertebral bodies as detailed above without evidence of acuity by CT criteria. If the patient has severe back pain or point tenderness at these locations MRI could provide more complete characterization for acute compression fracture. 2. No acute fracture the pelvis identified. 3. Osteopenia. 4. Severe degenerative change of the lumbar spine, sacroiliac joints, and hips. 5. Diverticulosis. This exam was performed according to our departmental dose-optimization program, which includes automated exposure control, adjustment of the mA and/or kV according to patient size and/or use of iterative reconstruction technique. Pelvis CT 12/15/17 00:40 IMPRESSION: 1. Age-indeterminate compression deformities of the T12, L1, and L2 vertebral bodies as detailed above without evidence of acuity by CT criteria. If the patient has severe back pain or point tenderness at these locations MRI could provide more complete characterization for acute compression fracture. 2. No acute fracture the pelvis identified. 3. Osteopenia. 4. Severe degenerative change of the lumbar spine, sacroiliac joints, and hips. 5. Diverticulosis. This exam was performed according to our departmental dose-optimization program, which includes automated exposure control, adjustment of the mA and/or kV according to patient size and/or use of iterative reconstruction technique. Assessment & Plan - Diagnosis (1) Leg pain, left Is this a current diagnosis for this admission?: Yes Plan: Likely due to radiculopathy from degenerative disc disease. Continue analgesics and muscle relaxants. Physical therapy as tolerated. (2) Muscle spasm of left lower extremity Is this a current diagnosis for this admission?: Yes Plan: As above. (3) Obesity Qualifiers: Obesity type: due to excess calories Obesity classification: pediatric obesity Is this a current diagnosis for this admission?: Yes Plan: Calorie control. (4) Restless leg syndrome Is this a current diagnosis for this admission?: Yes Plan: Continue pramipexole. (5) DVT prophylaxis Is this a current diagnosis for this admission?: Yes Plan: Subcutaneous Lovenox. - Time Time Spent with patient: 35 or more minutes - Inpatient Certification Medical Necessity: Need for Pain Control
[2017-12-15] MEDS: HYDROCODONE/ACETAMINOPHEN 5-325 MG TABLET PO PRN (19:30)
[2017-12-15] MEDS: GABAPENTIN 300 MG CAPSULE PO SCH (21:40)
[2017-12-16] MEDS: HYDROCODONE/ACETAMINOPHEN 5-325 MG TABLET PO PRN ×4 (03:05→22:08)
[2017-12-16] MEDS: LANSOPRAZOLE 30 MG TAB.RAP.DR PO SCH (05:20)
[2017-12-16] MEDS: ENOXAPARIN SODIUM INJ 40 MG/0.4 ML DISP.SYRIN SUBCUT SCH (10:05)
[2017-12-16] MEDS: CYCLOBENZAPRINE HCL 10 MG TABLET PO SCH (10:06)
[2017-12-16] MEDS: CHOLECALCIFEROL (D3) 1,000 UNIT TABLET PO SCH (10:07)
[2017-12-16] MEDS: PRAMIPEXOLE DI-HCL 0.5 MG TABLET PO SCH ×3 (10:07→18:25)
--- NOTE | 2017-12-16 13:18 | PDOC PROGRESS REPORT ---
Subjective Progress Note for:: 12/16/17 Subjective:: 76-year-old female with past medical history of Chronic back pain Hypertension Obesity Restless leg syndrome. She presented to the emergency room with 2 week history of left leg spasm and for the past 3 days she reports being unable to walk. No history of trauma or fall. No recent illness. Left hip x-ray showed degenerative changes of the sacroiliac joints and mild bilateral hip joint space narrowing and osteopenia, no fracture. CT of the lumbar spine and pelvis showed age indeterminate compression deformities of T12-L1 and L2, does not appear to be acute. No acute fracture of the pelvis identified. Severe degenerative change of the lumbar spine sacroiliac joints and hips was seen. She was started on Flexeril and Chrisney and evaluated by Dr. Cr from pain management evaluated the patient and feels that her symptoms are secondary to radiculopathy from degenerative disc disease, and he may give her an epidural steroid injection on Monday if the pain is still not controlled. She needs an MRI of the lumbar spine-she has a bioprosthetic aortic valve but radiology needs the documentation for this which is pending. Lovenox will be on hold in anticipation of this procedure. Reason For Visit: LEFT LEG SPASM Physical Exam Vital Signs: Temp Pulse Resp BP Pulse Ox 98.2 F 78 19 118/56 L 94 12/16/17 11:48 12/16/17 11:48 12/16/17 11:48 12/16/17 11:48 12/16/17 11:48 Intake & Output 12/15/17 12/16/17 12/17/17 06:59 06:59 06:59 Intake Total 1429 Output Total 2100 Balance -671 Weight 105.6 kg 104.2 kg General appearance: PRESENT: no acute distress, obese Head exam: PRESENT: normocephalic Ear exam: PRESENT: normal external ear exam Mouth exam: PRESENT: moist Neck exam: ABSENT: tracheal deviation Respiratory exam: PRESENT: symmetrical, unlabored. ABSENT: crackles Cardiovascular exam: PRESENT: RRR GI/Abdominal exam: PRESENT: normal bowel sounds, soft. ABSENT: tenderness Rectal exam: PRESENT: deferred Gentrourinary exam: PRESENT: indwelling catheter Extremities exam: ABSENT: pedal edema Musculoskeletal exam: PRESENT: other - Tenderness in the muscles of the lateral aspect of the left lower leg as well as in the gluteal region. Normal range of motion of the left hip with no limitation due to pain. Neurological exam: PRESENT: alert, awake, oriented to person, oriented to place , oriented to time, oriented to situation Psychiatric exam: PRESENT: appropriate affect Results Laboratory Results: 12/15/17 04:50 12/15/17 04:50 Creatine Kinase 48 Impressions: Chest X-Ray 12/14/17 21:31 IMPRESSION: No active disease. Hip X-Ray 12/14/17 22:59 IMPRESSION: No acute fracture identified. 2010 [employer]- All Rights Reserved Lumbar Spine CT 12/15/17 00:40 IMPRESSION: 1. Age-indeterminate compression deformities of the T12, L1, and L2 vertebral bodies as detailed above without evidence of acuity by CT criteria. If the patient has severe back pain or point tenderness at these locations MRI could provide more complete characterization for acute compression fracture. 2. No acute fracture the pelvis identified. 3. Osteopenia. 4. Severe degenerative change of the lumbar spine, sacroiliac joints, and hips. 5. Diverticulosis. This exam was performed according to our departmental dose-optimization program, which includes automated exposure control, adjustment of the mA and/or kV according to patient size and/or use of iterative reconstruction technique. Pelvis CT 12/15/17 00:40 IMPRESSION: 1. Age-indeterminate compression deformities of the T12, L1, and L2 vertebral bodies as detailed above without evidence of acuity by CT criteria. If the patient has severe back pain or point tenderness at these locations MRI could provide more complete characterization for acute compression fracture. 2. No acute fracture the pelvis identified. 3. Osteopenia. 4. Severe degenerative change of the lumbar spine, sacroiliac joints, and hips. 5. Diverticulosis. This exam was performed according to our departmental dose-optimization program, which includes automated exposure control, adjustment of the mA and/or kV according to patient size and/or use of iterative reconstruction technique. Assessment & Plan - Diagnosis (1) Leg pain, left Is this a current diagnosis for this admission?: Yes Plan: Likely due to radiculopathy from degenerative disc disease. Continue analgesics and muscle relaxants. Physical therapy as tolerated. (2) Muscle spasm of left lower extremity Is this a current diagnosis for this admission?: Yes Plan: As above. (3) Obesity Qualifiers: Obesity type: due to excess calories Obesity classification: pediatric obesity Is this a current diagnosis for this admission?: Yes Plan: Calorie control. (4) Restless leg syndrome Is this a current diagnosis for this admission?: Yes Plan: Continue pramipexole. (5) DVT prophylaxis Is this a current diagnosis for this admission?: Yes Plan: Subcutaneous Lovenox-hold starting December 17 for possible epidural injection on Monday. - Time Time Spent with patient: 25-34 minutes
[2017-12-16] MEDS ORDERED: GABAPENTIN 100 MG CAPSULE PO SCH (14:00)
[2017-12-16] MEDS: MULTIVITAMIN TABLET PO SCH (15:17)
[2017-12-16] MEDS: GABAPENTIN 100 MG CAPSULE PO SCH ×2 (15:18→18:26)
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
[2017-12-16] MEDS: GABAPENTIN 300 MG CAPSULE PO SCH (21:49)
[2017-12-17] MEDS: HYDROCODONE/ACETAMINOPHEN 5-325 MG TABLET PO PRN ×3 (04:05→19:36)
[2017-12-17] MEDS: CYCLOBENZAPRINE HCL 10 MG TABLET PO PRN ×2 (04:08→19:39)
[2017-12-17] MEDS: LANSOPRAZOLE 30 MG TAB.RAP.DR PO SCH (05:26)
[2017-12-17] MEDS: CHOLECALCIFEROL (D3) 1,000 UNIT TABLET PO SCH (09:33)
[2017-12-17] MEDS: GABAPENTIN 100 MG CAPSULE PO SCH ×3 (09:34→17:25)
[2017-12-17] MEDS: PRAMIPEXOLE DI-HCL 0.5 MG TABLET PO SCH ×3 (09:34→17:25)
[2017-12-17] MEDS ORDERED: GABAPENTIN 100 MG CAPSULE PO SCH (10:00)
[2017-12-17] MEDS: MULTIVITAMIN TABLET PO SCH (12:37)
--- NOTE | 2017-12-17 15:25 | PDOC PROGRESS REPORT ---
Subjective Progress Note for:: 12/17/17 Subjective:: Continues to endorse left pain and weakness. Has been seen by pain team who recommended Flexeril and Lenora. Needs lumbar MRI however unable to currently due to history of bioprosthetic aortic valve in 2011 and need to confirm that it is safe to get an MRI. Patient indicates valve was placed [place]as[place]. She has called and requested records be sent over. This has not happened yet. Reason For Visit: LEFT LEG SPASM Physical Exam Vital Signs: Temp Pulse Resp BP Pulse Ox 98.4 F 82 21 H 137/48 H 95 12/17/17 11:36 12/17/17 11:36 12/17/17 11:36 12/17/17 11:36 12/17/17 11:36 Intake & Output 12/16/17 12/17/17 12/18/17 06:59 06:59 06:59 Intake Total 1429 2460 Output Total 2100 3250 Balance -671 -790 Weight 104.2 kg 107.3 kg General appearance: PRESENT: no acute distress, cooperative, morbidly obese Head exam: PRESENT: normocephalic Mouth exam: PRESENT: moist Respiratory exam: PRESENT: unlabored Cardiovascular exam: PRESENT: +S1, +S2. ABSENT: tachycardia GI/Abdominal exam: PRESENT: soft. ABSENT: tenderness Neurological exam: PRESENT: alert, awake, CN II-XII grossly intact, motor sensory deficit - Left lower extremity muscle strength deficit Psychiatric exam: PRESENT: appropriate affect Results Laboratory Results: 12/15/17 04:50 12/15/17 04:50 Creatine Kinase 48 Impressions: Chest X-Ray 12/14/17 21:31 IMPRESSION: No active disease. Hip X-Ray 12/14/17 22:59 IMPRESSION: No acute fracture identified. 2010 [employer]- All Rights Reserved Lumbar Spine CT 12/15/17 00:40 IMPRESSION: 1. Age-indeterminate compression deformities of the T12, L1, and L2 vertebral bodies as detailed above without evidence of acuity by CT criteria. If the patient has severe back pain or point tenderness at these locations MRI could provide more complete characterization for acute compression fracture. 2. No acute fracture the pelvis identified. 3. Osteopenia. 4. Severe degenerative change of the lumbar spine, sacroiliac joints, and hips. 5. Diverticulosis. This exam was performed according to our departmental dose-optimization program, which includes automated exposure control, adjustment of the mA and/or kV according to patient size and/or use of iterative reconstruction technique. Pelvis CT 12/15/17 00:40 IMPRESSION: 1. Age-indeterminate compression deformities of the T12, L1, and L2 vertebral bodies as detailed above without evidence of acuity by CT criteria. If the patient has severe back pain or point tenderness at these locations MRI could provide more complete characterization for acute compression fracture. 2. No acute fracture the pelvis identified. 3. Osteopenia. 4. Severe degenerative change of the lumbar spine, sacroiliac joints, and hips. 5. Diverticulosis. This exam was performed according to our departmental dose-optimization program, which includes automated exposure control, adjustment of the mA and/or kV according to patient size and/or use of iterative reconstruction technique. Assessment & Plan - Diagnosis (1) Lumbar radiculopathy, acute Is this a current diagnosis for this admission?: Yes Plan: patient is a very function 76 year old who lives alone and takes care of all her ADLs/iALDS. She has history of chronic lower back pain however current symptoms are acute. CT lumbar spine shows an age-indeterminant compression deformity of 30% loss of anterior vertebral body hieght. There is also 10% anterior compression deformity involving T12 and L1 vertebral bodies. There is also severe degenerative changes in the L spine, joints, and hips. She has been evaluated by Dr. Cr (pain) who recommended medical management. Will continue as prescribed. To Do: - Obtain OSH records ([facility]) for pig valve placement - Once confirmed, proceed with MRI - Following MRI, consult ortho to review imaging and for management assistance - Continue PT exercises however would not force patient to weight bear unless tolerated (2) Leg pain, left Is this a current diagnosis for this admission?: Yes Plan: Per above. (3) Obesity Qualifiers: Obesity type: due to excess calories Obesity classification: pediatric obesity Is this a current diagnosis for this admission?: Yes (4) DVT prophylaxis Is this a current diagnosis for this admission?: Yes Plan: Received Lovenox however now on hold pending possible epidural injection on 12/18 - Time Time Spent with patient: Less than 15 minutes Medications reviewed and adjusted accordingly: Yes Anticipated discharge: SNF
[2017-12-17] MEDS: GABAPENTIN 300 MG CAPSULE PO SCH (21:19)
[2017-12-17] MEDS ORDERED: GABAPENTIN 300 MG CAPSULE PO SCH (22:00)
[2017-12-18] MEDS: HYDROCODONE/ACETAMINOPHEN 5-325 MG TABLET PO PRN ×5 (02:49→23:07)
[2017-12-18] MEDS: CYCLOBENZAPRINE HCL 10 MG TABLET PO PRN ×3 (03:30→21:57)
[2017-12-18] MEDS: LANSOPRAZOLE 30 MG TAB.RAP.DR PO SCH (05:23)
[2017-12-18] MEDS: CHOLECALCIFEROL (D3) 1,000 UNIT TABLET PO SCH (09:46)
[2017-12-18] MEDS: PRAMIPEXOLE DI-HCL 0.5 MG TABLET PO SCH ×3 (09:46→17:41)
[2017-12-18] MEDS ORDERED: GABAPENTIN 100 MG CAPSULE PO ONE (10:00)
[2017-12-18] MEDS: MULTIVITAMIN TABLET PO SCH (11:06)
[2017-12-18] MEDS: GABAPENTIN 100 MG CAPSULE PO SCH ×2 (13:11→21:56)
--- NOTE | 2017-12-18 21:03 | PDOC PROGRESS REPORT ---
Subjective Progress Note for:: 12/18/17 Subjective:: 76-year-old female with past medical history of HTN, Restless leg syndrome, chronic back pain, and obesity. Described a past 2 week hx of left leg muscle spasms. Reported that 3 days prior to admission she was unable to walk. Left hip xray showed degenerative changes to SI joint, and degenrative changes in left hip. CT of lumbar spin showed compression deformities of T12-L1 and L2. Patient was evaluated by pain management and felt to be a candidate for epidural steroid injections, and an MRI of her lumbar spine was recommended. The prior team was unable to get MRI of lumbar spine due to unclear status of her aortic valve replacement. Records were obtained today that shows a Magna Ease Aortic Bioprosthetic valve replaced, that can undergo MRI testing with certain limitations. The radiology department was made aware of this. Reason For Visit: SCOLIOSIS, LEFT LEG WEAKNESS Physical Exam Vital Signs: Temp Pulse Resp BP Pulse Ox 98.7 F 87 21 H 133/41 H 93 12/18/17 15:45 12/18/17 15:45 12/18/17 15:45 12/18/17 15:45 12/18/17 15:45 Intake & Output 12/17/17 12/18/17 12/19/17 06:59 06:59 06:59 Intake Total 801 365 Output Total 3000 1700 Balance -2199 -1335 Weight 108.3 kg General appearance: PRESENT: no acute distress, cooperative, obese Head exam: PRESENT: atraumatic, normocephalic Eye exam: PRESENT: EOMI, PERRLA Ear exam: PRESENT: normal external ear exam. ABSENT: drainage Mouth exam: PRESENT: moist, neck supple Throat exam: PRESENT: tonsillar exudate. ABSENT: tonsillar erythema Neck exam: PRESENT: full ROM. ABSENT: JVD, thyromegaly Respiratory exam: ABSENT: rales, rhonchi, wheezes Cardiovascular exam: PRESENT: RRR, +S1, +S2 Pulses: PRESENT: normal radial pulses, normal dorsalis pedis pul GI/Abdominal exam: PRESENT: normal bowel sounds, soft. ABSENT: distended, firm , rigid Musculoskeletal exam: PRESENT: normal inspection, other - Left lower extremity weakness and pain with manipulation. Increase strength of right lower extremity but some pain with manipulation.. ABSENT: full ROM Neurological exam: PRESENT: alert, oriented to person, oriented to place, oriented to time, oriented to situation Psychiatric exam: ABSENT: agitated, anxious, manic Focused psych exam: ABSENT: catatonic, paranoid Skin exam: PRESENT: normal color. ABSENT: mottled Results Impressions: Chest X-Ray 12/14/17 21:31 IMPRESSION: No active disease. Hip X-Ray 12/14/17 22:59 IMPRESSION: No acute fracture identified. 2010 [email or web address]- All Rights Reserved Lumbar Spine CT 12/15/17 00:40 IMPRESSION: 1. Age-indeterminate compression deformities of the T12, L1, and L2 vertebral bodies as detailed above without evidence of acuity by CT criteria. If the patient has severe back pain or point tenderness at these locations MRI could provide more complete characterization for acute compression fracture. 2. No acute fracture the pelvis identified. 3. Osteopenia. 4. Severe degenerative change of the lumbar spine, sacroiliac joints, and hips. 5. Diverticulosis. This exam was performed according to our departmental dose-optimization program, which includes automated exposure control, adjustment of the mA and/or kV according to patient size and/or use of iterative reconstruction technique. Pelvis CT 12/15/17 00:40 IMPRESSION: 1. Age-indeterminate compression deformities of the T12, L1, and L2 vertebral bodies as detailed above without evidence of acuity by CT criteria. If the patient has severe back pain or point tenderness at these locations MRI could provide more complete characterization for acute compression fracture. 2. No acute fracture the pelvis identified. 3. Osteopenia. 4. Severe degenerative change of the lumbar spine, sacroiliac joints, and hips. 5. Diverticulosis. This exam was performed according to our departmental dose-optimization program, which includes automated exposure control, adjustment of the mA and/or kV according to patient size and/or use of iterative reconstruction technique. Assessment & Plan - Diagnosis (1) Leg pain, left Is this a current diagnosis for this admission?: Yes Plan: continue current muscle relaxers, prn pain medications and PT support (2) Lumbar radiculopathy, acute Is this a current diagnosis for this admission?: Yes Plan: Patient's aortic valve does appear to be MRI compatible, paperwork will be sent to radiology department. Spoke to radiology department on the phone. Patient also states that she has had MRIs since having the valve placed. MRI of her lumbar back has been ordered at this point. May benefit from epidural injections per the pain clinic. (3) Muscle spasm of left lower extremity Is this a current diagnosis for this admission?: Yes Plan: Continue muscle relaxers. (4) Obesity Qualifiers: Obesity type: due to excess calories Obesity classification: pediatric obesity Is this a current diagnosis for this admission?: Yes Plan: Continue current diet, encouraged caloric reduction. (5) DVT prophylaxis Is this a current diagnosis for this admission?: Yes Plan: Hold Lovenox for any procedure that may be performed soon. Continue SCDs. - Time Time Spent with patient: 15-24 minutes - Inpatient Certification I certify that my determination is in accordance with my understanding of Medicare's requirements for reasonable and necessary INPATIENT services [42 CFR 412.3e].: Yes Medical Necessity: Need Close Monitoring Due to Risk of Patient Decompensation
--- NOTE | 2017-12-18 23:11 | RADIOLOGY REPORT (SQ) ---
EXAM DESCRIPTION: MRI LUMBAR SPINE WITHOUT IV CONTRAST COMPLETED DATE/TME: 12/18/2017 00:00 CLINICAL HISTORY: 76 years, Female, lower extremity weakness COMPARISON: CT, three days prior. TECHNIQUE: Conventional noncontrast MRI of the lumbar spine. [facility]: Dose Right [facility]: CareDose [facility]: Dose Right [facility]: Teradose 4D [facility]: VocoMD LIMITATIONS: None. FINDINGS: Normal alignment and curvature. Biconcave L2 vertebral endplates with moderate central vertebral height loss. Mild T12 anterior vertebral height loss. Diffuse demineralization. Bone marrow signal is otherwise unremarkable. Signal and position of the spinal cord and conus medullaris is unremarkable. T11-T12: Minimal disc bulge. T12-L1: Small disc bulge. L1-L2: Small disc bulge. Mild bilateral L1 foraminal stenosis. Mild spinal canal stenosis. Mild spondylosis. L2-L3: Minimal disc bulge. L3-L4: Small disc bulge. Mild thecal sac compression. Mild bilateral foraminal canal narrowing. L4-L5: Moderate wide central disc protrusion causes minimal spinal canal narrowing. Mild bilateral L4 foraminal narrowing. L5-S1: Small disc bulge and mild bilateral L5 foraminal narrowing. Visualized retroperitoneum, lumbar soft tissues and sacroiliac joints are unremarkable. IMPRESSION: Small moderate multilevel desiccated-protrusive disc disease. No significant thecal sac or nerve root compression. Moderate L2 compression deformity consistent with CT from three days prior.
[2017-12-19] MEDS: LANSOPRAZOLE 30 MG TAB.RAP.DR PO SCH (05:16)
[2017-12-19] MEDS: GABAPENTIN 100 MG CAPSULE PO SCH ×3 (05:16→21:37)
[2017-12-19] MEDS: HYDROCODONE/ACETAMINOPHEN 5-325 MG TABLET PO PRN ×3 (05:16→21:36)
[2017-12-19 07:16] LABS: HEMATOCRIT 32.3 % (36.0-47.0); HEMOGLOBIN 10.5 g/dL (12.0-15.5); MEAN CORPUSCULAR HEMOGLOBIN 32.4 pg (27.0-33.4); MEAN CORPUSCULAR HGB CONC 32.6 g/dL (32.0-36.0); MEAN CORPUSCULAR VOLUME 99 fl (80-97); PLATELET COUNT 255 10^3/uL (150-450); RED BLOOD COUNT 3.25 10^6/uL (3.72-5.28); RED CELL DISTRIBUTION WIDTH 13.8 % (11.5-14.0); WHITE BLOOD COUNT 4.5 10^3/uL (4.0-10.5)
[2017-12-19 07:34] LABS: ALBUMIN 3.4 g/dL (3.5-5.0); ANION GAP 8 (5-19); BLOOD UREA NITROGEN 22 mg/dL (7-20); CALCIUM 9.3 mg/dL (8.4-10.2); CARBON DIOXIDE 31 mmol/L (22-30); CHLORIDE 100 mmol/L (98-107); GLUCOSE 103 mg/dL (75-110); PHOSPHORUS 5.1 mg/dL (2.5-4.5); SODIUM 138.9 mmol/L (137-145)
[2017-12-19] MEDS: CYCLOBENZAPRINE HCL 10 MG TABLET PO PRN ×2 (08:18→17:17)
[2017-12-19] MEDS: PRAMIPEXOLE DI-HCL 0.5 MG TABLET PO SCH ×3 (09:27→17:18)
[2017-12-19] MEDS: POLYETHYLENE GLYCOL 3350 POWDER 17 GM/1 PACKET PO SCH (09:27)
[2017-12-19] MEDS: CHOLECALCIFEROL (D3) 1,000 UNIT TABLET PO SCH (09:27)
[2017-12-19] MEDS: MULTIVITAMIN TABLET PO SCH (12:56)
--- NOTE | 2017-12-19 22:05 | PDOC PROGRESS REPORT ---
Subjective Progress Note for:: 12/19/17 Subjective:: 76-year-old female with past medical history of HTN, Restless leg syndrome, chronic back pain, and obesity. Described a past 2 week hx of left leg muscle spasms. Reported that 3 days prior to admission she was unable to walk. Left hip xray showed degenerative changes to SI joint, and degenrative changes in left hip. CT of lumbar spin showed compression deformities of T12-L1 and L2. Patient was evaluated by pain management and felt to be a candidate for epidural steroid injections, and an MRI of her lumbar spine was recommended. The prior team was unable to get MRI of lumbar spine due to unclear status of her aortic valve replacement. Records were obtained and patient was able to get a lumbar MRI. It did not show anything that required a surgical intervention. Case was discussed with Dr. Cr from pain management today. Patient will need rehab at discharge, d/c production planner scheduler consulted for this. Dr. Cr is willing to do epidural injections on her in the OP setting, after she has gone through some rehab. Reason For Visit: SCOLIOSIS, LEFT LEG WEAKNESS Physical Exam Vital Signs: Temp Pulse Resp BP Pulse Ox 98.8 F 95 16 153/43 H 94 12/19/17 20:00 12/19/17 20:00 12/19/17 20:00 12/19/17 20:00 12/19/17 20:00 Intake & Output 12/18/17 12/19/17 12/20/17 06:59 06:59 06:59 Intake Total 801 730 950 Output Total 3000 2800 1200 Balance -2199 -2070 -250 Weight 108.3 kg 106 kg General appearance: PRESENT: no acute distress, cooperative Head exam: PRESENT: atraumatic, normocephalic Eye exam: PRESENT: EOMI, PERRLA Ear exam: PRESENT: normal external ear exam. ABSENT: drainage Mouth exam: PRESENT: moist, neck supple Throat exam: ABSENT: tonsillar erythema, tonsillar exudate Neck exam: PRESENT: full ROM. ABSENT: JVD, tenderness Respiratory exam: ABSENT: accessory muscle use, rales, rhonchi, wheezes Cardiovascular exam: PRESENT: RRR, +S1, +S2 Pulses: PRESENT: normal radial pulses, normal dorsalis pedis pul GI/Abdominal exam: PRESENT: normal bowel sounds, soft. ABSENT: rigid Neurological exam: PRESENT: alert, awake, oriented to person, oriented to place , oriented to time, oriented to situation Psychiatric exam: ABSENT: agitated, anxious Focused psych exam: ABSENT: catatonic, paranoid Skin exam: ABSENT: erythema, pallor, petechiae Results Laboratory Results: 12/19/17 06:45 12/19/17 06:45 12/19/17 12/19/17 06:45 06:45 WBC 4.5 RBC 3.25 L Hgb 10.5 L Hct 32.3 L MCV 99 H MCH 32.4 MCHC 32.6 RDW 13.8 Plt Count 255 Sodium 138.9 Potassium 5.0 Chloride 100 Carbon Dioxide 31 H Anion Gap 8 BUN 22 H Creatinine 0.82 Est GFR ( Amer) > 60 Est GFR (Non-Af Amer) > 60 Glucose 103 Calcium 9.3 Phosphorus 5.1 H Albumin 3.4 L Impressions: Chest X-Ray 12/14/17 21:31 IMPRESSION: No active disease. Hip X-Ray 12/14/17 22:59 IMPRESSION: No acute fracture identified. 2010 [employer]- All Rights Reserved Lumbar Spine CT 12/15/17 00:40 IMPRESSION: 1. Age-indeterminate compression deformities of the T12, L1, and L2 vertebral bodies as detailed above without evidence of acuity by CT criteria. If the patient has severe back pain or point tenderness at these locations MRI could provide more complete characterization for acute compression fracture. 2. No acute fracture the pelvis identified. 3. Osteopenia. 4. Severe degenerative change of the lumbar spine, sacroiliac joints, and hips. 5. Diverticulosis. This exam was performed according to our departmental dose-optimization program, which includes automated exposure control, adjustment of the mA and/or kV according to patient size and/or use of iterative reconstruction technique. Pelvis CT 12/15/17 00:40 IMPRESSION: 1. Age-indeterminate compression deformities of the T12, L1, and L2 vertebral bodies as detailed above without evidence of acuity by CT criteria. If the patient has severe back pain or point tenderness at these locations MRI could provide more complete characterization for acute compression fracture. 2. No acute fracture the pelvis identified. 3. Osteopenia. 4. Severe degenerative change of the lumbar spine, sacroiliac joints, and hips. 5. Diverticulosis. This exam was performed according to our departmental dose-optimization program, which includes automated exposure control, adjustment of the mA and/or kV according to patient size and/or use of iterative reconstruction technique. Lumbar Spine MRI 12/18/17 00:00 IMPRESSION: Small moderate multilevel desiccated-protrusive disc disease. No significant thecal sac or nerve root compression. Moderate L2 compression deformity consistent with CT from three days prior. Assessment & Plan - Diagnosis (1) Leg pain, left Is this a current diagnosis for this admission?: Yes Plan: prn pain medications. Patient is unable to bear significant weight on leg due to uncontroled pain. MRI of lumbar spine showing moderate L2 compression, and small multilevel protrusive disk disease. Results were discussed with Dr. cr, her Pain management doctor. He recommends that she go through rehab, and get outpatient epidural injections. (2) Lumbar radiculopathy, acute Is this a current diagnosis for this admission?: Yes Plan: see above plan (3) Muscle spasm of left lower extremity Is this a current diagnosis for this admission?: Yes Plan: continue muscle relaxers. (4) Obesity Qualifiers: Obesity type: due to excess calories Obesity classification: pediatric obesity Is this a current diagnosis for this admission?: Yes Plan: encouraged weight loss and caloric restriction. (5) DVT prophylaxis Is this a current diagnosis for this admission?: Yes - Time Time Spent with patient: 15-24 minutes - Inpatient Certification I certify that my determination is in accordance with my understanding of Medicare's requirements for reasonable and necessary INPATIENT services [42 CFR 412.3e].: Yes Medical Necessity: Need Close Monitoring Due to Risk of Patient Decompensation
[2017-12-20] MEDS: CYCLOBENZAPRINE HCL 10 MG TABLET PO PRN ×2 (02:00→10:26)
[2017-12-20] MEDS: HYDROCODONE/ACETAMINOPHEN 5-325 MG TABLET PO PRN ×2 (02:00→10:26)
[2017-12-20 05:22] LABS: HEMATOCRIT 30.8 % (36.0-47.0); HEMOGLOBIN 10.2 g/dL (12.0-15.5); MEAN CORPUSCULAR HEMOGLOBIN 32.5 pg (27.0-33.4); MEAN CORPUSCULAR VOLUME 99 fl (80-97); PLATELET COUNT 272 10^3/uL (150-450); RED BLOOD COUNT 3.13 10^6/uL (3.72-5.28); RED CELL DISTRIBUTION WIDTH 13.7 % (11.5-14.0); WHITE BLOOD COUNT 5.1 10^3/uL (4.0-10.5)
[2017-12-20] MEDS: LANSOPRAZOLE 30 MG TAB.RAP.DR PO SCH (05:34)
[2017-12-20] MEDS: GABAPENTIN 100 MG CAPSULE PO SCH ×3 (05:34→21:41)
[2017-12-20 05:42] LABS: ALBUMIN 3.2 g/dL (3.5-5.0); ANION GAP 9 (5-19); BLOOD UREA NITROGEN 24 mg/dL (7-20); CALCIUM 9.1 mg/dL (8.4-10.2); CARBON DIOXIDE 30 mmol/L (22-30); CHLORIDE 98 mmol/L (98-107); GLUCOSE 132 mg/dL (75-110); PHOSPHORUS 4.4 mg/dL (2.5-4.5); POTASSIUM 4.7 mmol/L (3.6-5.0); SODIUM 137.2 mmol/L (137-145)
[2017-12-20] MEDS: PRAMIPEXOLE DI-HCL 0.5 MG TABLET PO SCH ×3 (10:25→21:41)
[2017-12-20] MEDS: CHOLECALCIFEROL (D3) 1,000 UNIT TABLET PO SCH (10:25)
[2017-12-20] MEDS: POLYETHYLENE GLYCOL 3350 POWDER 17 GM/1 PACKET PO SCH (10:26)
[2017-12-20] MEDS: MULTIVITAMIN TABLET PO SCH (11:59)
--- NOTE | 2017-12-20 21:28 | PDOC PROGRESS REPORT ---
Subjective Progress Note for:: 12/20/17 Subjective:: Patient slowly improving, although still hardly able to ambulate. She is open she does not have to go to rehab. Denies chest pain or shortness of breath, no fever or chills, no nausea or vomiting. Reason For Visit: SCOLIOSIS, LEFT LEG WEAKNESS Physical Exam Vital Signs: Temp Pulse Resp BP Pulse Ox 98.4 F 96 20 151/49 H 93 12/20/17 19:58 12/20/17 19:58 12/20/17 19:58 12/20/17 19:58 12/20/17 19:58 Intake & Output 12/19/17 12/20/17 12/21/17 06:59 06:59 06:59 Intake Total 730 1962 2420 Output Total 2800 4000 1900 Balance -2069 520 Weight 106 kg GEN: NAD, well-developed, well-nourished CV: RRR, NL S1S2 LUNGS: CTA bilaterally ABDOMEN Soft, NT, +BS EXTERMITIES: No e/c/c NEURO: Alert, oriented 3, no acute weakness Results Laboratory Results: 12/20/17 04:45 12/20/17 04:45 12/20/17 12/20/17 04:45 04:45 WBC 5.1 RBC 3.13 L Hgb 10.2 L Hct 30.8 L MCV 99 H MCH 32.5 MCHC 33.0 RDW 13.7 Plt Count 272 Sodium 137.2 Potassium 4.7 Chloride 98 Carbon Dioxide 30 Anion Gap 9 BUN 24 H Creatinine 0.71 Est GFR ( Amer) > 60 Est GFR (Non-Af Amer) > 60 Glucose 132 H Calcium 9.1 Phosphorus 4.4 Albumin 3.2 L Impressions: Chest X-Ray 12/14/17 21:31 IMPRESSION: No active disease. Hip X-Ray 12/14/17 22:59 IMPRESSION: No acute fracture identified. 2010 [employer]- All Rights Reserved Lumbar Spine CT 12/15/17 00:40 IMPRESSION: 1. Age-indeterminate compression deformities of the T12, L1, and L2 vertebral bodies as detailed above without evidence of acuity by CT criteria. If the patient has severe back pain or point tenderness at these locations MRI could provide more complete characterization for acute compression fracture. 2. No acute fracture the pelvis identified. 3. Osteopenia. 4. Severe degenerative change of the lumbar spine, sacroiliac joints, and hips. 5. Diverticulosis. This exam was performed according to our departmental dose-optimization program, which includes automated exposure control, adjustment of the mA and/or kV according to patient size and/or use of iterative reconstruction technique. Pelvis CT 12/15/17 00:40 IMPRESSION: 1. Age-indeterminate compression deformities of the T12, L1, and L2 vertebral bodies as detailed above without evidence of acuity by CT criteria. If the patient has severe back pain or point tenderness at these locations MRI could provide more complete characterization for acute compression fracture. 2. No acute fracture the pelvis identified. 3. Osteopenia. 4. Severe degenerative change of the lumbar spine, sacroiliac joints, and hips. 5. Diverticulosis. This exam was performed according to our departmental dose-optimization program, which includes automated exposure control, adjustment of the mA and/or kV according to patient size and/or use of iterative reconstruction technique. Lumbar Spine MRI 12/18/17 00:00 IMPRESSION: Small moderate multilevel desiccated-protrusive disc disease. No significant thecal sac or nerve root compression. Moderate L2 compression deformity consistent with CT from three days prior. Assessment & Plan - Plan Summary Plan Summary: (1) Leg pain, left Is this a current diagnosis for this admission?: Yes Plan: prn pain medications. Patient is unable to bear significant weight on leg due to uncontroled pain. MRI of lumbar spine showing moderate L2 compression, and small multilevel protrusive disk disease. Results were discussed with Dr. aguilar, her Pain management doctor, per Dr. Martin. He recommends that she go through rehab, and get outpatient epidural injections. (2) Lumbar radiculopathy, acute Is this a current diagnosis for this admission?: Yes Plan: see above plan (3) Muscle spasm of left lower extremity Is this a current diagnosis for this admission?: Yes Plan: continue muscle relaxers. (4) Obesity Qualifiers: Obesity type: due to excess calories Obesity classification: pediatric obesity Is this a current diagnosis for this admission?: Yes Plan: encouraged weight loss and caloric restriction. (5) DVT prophylaxis Is this a current diagnosis for this admission?: Yes
[2017-12-21] MEDS: HYDROCODONE/ACETAMINOPHEN 5-325 MG TABLET PO PRN ×4 (05:08→22:55)
[2017-12-21] MEDS: LANSOPRAZOLE 30 MG TAB.RAP.DR PO SCH (05:08)
[2017-12-21] MEDS: GABAPENTIN 100 MG CAPSULE PO SCH ×3 (05:08→22:55)
[2017-12-21] MEDS: ENOXAPARIN SODIUM INJ 40 MG/0.4 ML DISP.SYRIN SUBCUT SCH (09:32)
[2017-12-21] MEDS: PRAMIPEXOLE DI-HCL 0.5 MG TABLET PO SCH ×3 (09:32→17:40)
[2017-12-21] MEDS: POLYETHYLENE GLYCOL 3350 POWDER 17 GM/1 PACKET PO SCH (09:32)
[2017-12-21] MEDS: CHOLECALCIFEROL (D3) 1,000 UNIT TABLET PO SCH (09:32)
[2017-12-21] MEDS: CYCLOBENZAPRINE HCL 10 MG TABLET PO PRN (09:33)
[2017-12-21] MEDS: MULTIVITAMIN TABLET PO SCH (10:47)
--- NOTE | 2017-12-21 21:06 | PDOC PROGRESS REPORT ---
Subjective Progress Note for:: 12/21/17 Subjective:: Patient slowly improving, although still hardly able to ambulate. She is open to going but really does not have to go to rehab. Denies chest pain or shortness of breath, no fever or chills, no nausea or vomiting. Reason For Visit: SCOLIOSIS, LEFT LEG WEAKNESS Physical Exam Vital Signs: Temp Pulse Resp BP Pulse Ox 98.9 F 92 18 152/52 H 92 12/21/17 19:49 12/21/17 19:49 12/21/17 19:49 12/21/17 19:49 12/21/17 19:49 Intake & Output 12/20/17 12/21/17 12/22/17 06:59 06:59 06:59 Intake Total 1962 3595 370 Output Total 4000 3450 800 Balance -8 145 -430 Weight 104.2 kg GEN: NAD, well-developed, well-nourished CV: RRR, NL S1S2 LUNGS: CTA bilaterally ABDOMEN Soft, NT, +BS EXTERMITIES: No e/c/c : Mac present NEURO: Alert, oriented 3, no acute weakness Results Laboratory Results: 12/20/17 04:45 12/20/17 04:45 Impressions: Chest X-Ray 12/14/17 21:31 IMPRESSION: No active disease. Hip X-Ray 12/14/17 22:59 IMPRESSION: No acute fracture identified. 2010 [employer]- All Rights Reserved Lumbar Spine CT 12/15/17 00:40 IMPRESSION: 1. Age-indeterminate compression deformities of the T12, L1, and L2 vertebral bodies as detailed above without evidence of acuity by CT criteria. If the patient has severe back pain or point tenderness at these locations MRI could provide more complete characterization for acute compression fracture. 2. No acute fracture the pelvis identified. 3. Osteopenia. 4. Severe degenerative change of the lumbar spine, sacroiliac joints, and hips. 5. Diverticulosis. This exam was performed according to our departmental dose-optimization program, which includes automated exposure control, adjustment of the mA and/or kV according to patient size and/or use of iterative reconstruction technique. Pelvis CT 12/15/17 00:40 IMPRESSION: 1. Age-indeterminate compression deformities of the T12, L1, and L2 vertebral bodies as detailed above without evidence of acuity by CT criteria. If the patient has severe back pain or point tenderness at these locations MRI could provide more complete characterization for acute compression fracture. 2. No acute fracture the pelvis identified. 3. Osteopenia. 4. Severe degenerative change of the lumbar spine, sacroiliac joints, and hips. 5. Diverticulosis. This exam was performed according to our departmental dose-optimization program, which includes automated exposure control, adjustment of the mA and/or kV according to patient size and/or use of iterative reconstruction technique. Lumbar Spine MRI 12/18/17 00:00 IMPRESSION: Small moderate multilevel desiccated-protrusive disc disease. No significant thecal sac or nerve root compression. Moderate L2 compression deformity consistent with CT from three days prior. Assessment & Plan - Plan Summary Plan Summary: (1) Leg pain, left Is this a current diagnosis for this admission?: Yes Plan: Continue prn pain medications. Patient is unable to bear significant weight on leg due to uncontroled pain. MRI of lumbar spine showing moderate L2 compression, and small multilevel protrusive disk disease. Results were discussed with Dr. aguilar, her Pain management doctor, per Dr. Martin. He recommends that she go through rehab, and get outpatient epidural injections. Patient is now awaiting rehab. (2) Lumbar radiculopathy, acute Is this a current diagnosis for this admission?: Yes Plan: see above plan (3) Muscle spasm of left lower extremity Is this a current diagnosis for this admission?: Yes Plan: continue muscle relaxers. (4) Obesity Qualifiers: Obesity type: due to excess calories Obesity classification: pediatric obesity Is this a current diagnosis for this admission?: Yes Plan: encouraged weight loss and caloric restriction. (5) DVT prophylaxis Is this a current diagnosis for this admission?: Yes (6) Mac Is this a current diagnosis for this admission?: Yes Plan: Patient currently has Mac. I educated the patient about risk of infection and ordered to have it removed, but patient refuses and will not let the nurse take it out. Continue to encourage patient to have Mac removed and to educated about the risk of infection with indwelling Mac
[2017-12-22 04:53] LABS: ABSOLUTE EOSINOPHILS # (AUTO) 0.2 10^3/uL (0.0-0.6); ABSOLUTE LYMPHOCYTES (AUTO) 0.9 10^3/uL (0.5-4.7); ABSOLUTE MONOCYTES (AUTO) 0.5 10^3/uL (0.1-1.4); ABSOLUTE NEUT (AUTO) 2.4 10^3/uL (1.7-8.2); BASOPHILS % (AUTO) 0.8 % (0-2); EOSINOPHILS % (AUTO) 5.2 % (0-6); HEMATOCRIT 31.4 % (36.0-47.0); HEMOGLOBIN 10.5 g/dL (12.0-15.5); LYMPHOCYTES % (AUTO) 21.4 % (13-45); MEAN CORPUSCULAR HEMOGLOBIN 32.5 pg (27.0-33.4); MEAN CORPUSCULAR HGB CONC 33.4 g/dL (32.0-36.0); MEAN CORPUSCULAR VOLUME 98 fl (80-97); MONOCYTES % (AUTO) 12.4 % (3-13); PLATELET COUNT 287 10^3/uL (150-450); RED BLOOD COUNT 3.22 10^6/uL (3.72-5.28); RED CELL DISTRIBUTION WIDTH 13.5 % (11.5-14.0); SEGMENTED NEUTROPHILS % (AUTO) 60.2 % (42-78); TOTAL CELLS COUNTED % (AUTO) 100 %
[2017-12-22 05:07] LABS: ANION GAP 8 (5-19); BLOOD UREA NITROGEN 25 mg/dL (7-20); CALCIUM 9.5 mg/dL (8.4-10.2); CARBON DIOXIDE 33 mmol/L (22-30); CHLORIDE 99 mmol/L (98-107); GLUCOSE 103 mg/dL (75-110); POTASSIUM 4.8 mmol/L (3.6-5.0); SODIUM 139.5 mmol/L (137-145)
[2017-12-22] MEDS: LANSOPRAZOLE 30 MG TAB.RAP.DR PO SCH (05:23)
[2017-12-22] MEDS: HYDROCODONE/ACETAMINOPHEN 5-325 MG TABLET PO PRN ×2 (05:23→20:31)
[2017-12-22] MEDS: GABAPENTIN 100 MG CAPSULE PO SCH ×2 (05:23→14:20)
[2017-12-22] MEDS: TIZANIDINE HCL 4 MG TABLET PO PRN ×2 (09:32→17:57)
[2017-12-22] MEDS: ENOXAPARIN SODIUM INJ 40 MG/0.4 ML DISP.SYRIN SUBCUT SCH (10:53)
[2017-12-22] MEDS: PRAMIPEXOLE DI-HCL 0.5 MG TABLET PO SCH ×3 (10:56→17:57)
[2017-12-22] MEDS: CHOLECALCIFEROL (D3) 1,000 UNIT TABLET PO SCH (10:56)
[2017-12-22] MEDS: POLYETHYLENE GLYCOL 3350 POWDER 17 GM/1 PACKET PO SCH (10:57)
[2017-12-22] MEDS: MULTIVITAMIN TABLET PO SCH (11:11)
[2017-12-22] MEDS ORDERED: GABAPENTIN 100 MG CAPSULE PO SCH (16:00)
--- NOTE | 2017-12-22 16:02 | PDOC PROGRESS REPORT ---
Subjective Progress Note for:: 12/22/17 Subjective:: Patient seen resting in bed. She is awake, alert and oriented 3. She denies any chest pain, shortness of breath or dyspnea. She denies any nausea, vomiting or abdominal pain. Complaining of left leg pain. She states it is not burning in nature. This pain is preventing her from being able to walk. She states the gabapentin is helping, but she is still having great difficulty getting around. She is tearful when she talks about going to rehab. She states she understands she cannot have her epidural injection until she is discharged. Remaining review of systems are negative. Reason For Visit: SCOLIOSIS, LEFT LEG WEAKNESS Physical Exam Vital Signs: Temp Pulse Resp BP Pulse Ox 98.0 F 81 20 142/51 H 94 12/22/17 11:35 12/22/17 11:35 12/22/17 11:35 12/22/17 11:35 12/22/17 11:35 Intake & Output 12/21/17 12/22/17 12/23/17 06:59 06:59 06:59 Intake Total 3595 1270 840 Output Total 3450 1200 Balance 145 70 840 Weight 104.2 kg 102.2 kg General appearance: PRESENT: no acute distress, morbidly obese, well-developed, well-nourished Head exam: PRESENT: atraumatic, normocephalic Eye exam: PRESENT: conjunctiva pink, EOMI, PERRLA. ABSENT: scleral icterus Ear exam: PRESENT: normal external ear exam Mouth exam: PRESENT: moist, tongue midline Teeth exam: PRESENT: edentulous Neck exam: ABSENT: carotid bruit, JVD, lymphadenopathy, thyromegaly Respiratory exam: PRESENT: clear to auscultation fabrice. ABSENT: rales, rhonchi, wheezes Cardiovascular exam: PRESENT: RRR. ABSENT: diastolic murmur, rubs, systolic murmur Pulses: PRESENT: normal dorsalis pedis pul Vascular exam: PRESENT: normal capillary refill GI/Abdominal exam: PRESENT: normal bowel sounds, soft. ABSENT: distended, guarding, mass, organolmegaly, rebound, tenderness Rectal exam: PRESENT: deferred Extremities exam: PRESENT: full ROM, tenderness - left lower extremity. ABSENT : calf tenderness, clubbing, pedal edema Neurological exam: PRESENT: alert, awake, oriented to person, oriented to place , oriented to time, oriented to situation, CN II-XII grossly intact. ABSENT: motor sensory deficit Psychiatric exam: PRESENT: other - Tearful Skin exam: PRESENT: dry, intact, warm. ABSENT: cyanosis, rash Results Laboratory Results: 12/22/17 04:03 12/22/17 04:03 12/22/17 12/22/17 04:03 04:03 WBC 4.0 RBC 3.22 L Hgb 10.5 L Hct 31.4 L MCV 98 H MCH 32.5 MCHC 33.4 RDW 13.5 Plt Count 287 Seg Neutrophils % 60.2 Lymphocytes % 21.4 Monocytes % 12.4 Eosinophils % 5.2 Basophils % 0.8 Absolute Neutrophils 2.4 Absolute Lymphocytes 0.9 Absolute Monocytes 0.5 Absolute Eosinophils 0.2 Absolute Basophils 0.0 Sodium 139.5 Potassium 4.8 Chloride 99 Carbon Dioxide 33 H Anion Gap 8 BUN 25 H Creatinine 0.66 Est GFR ( Amer) > 60 Est GFR (Non-Af Amer) > 60 Glucose 103 Calcium 9.5 Impressions: Chest X-Ray 12/14/17 21:31 IMPRESSION: No active disease. Hip X-Ray 12/14/17 22:59 IMPRESSION: No acute fracture identified. 2010 [employer]- All Rights Reserved Lumbar Spine CT 12/15/17 00:40 IMPRESSION: 1. Age-indeterminate compression deformities of the T12, L1, and L2 vertebral bodies as detailed above without evidence of acuity by CT criteria. If the patient has severe back pain or point tenderness at these locations MRI could provide more complete characterization for acute compression fracture. 2. No acute fracture the pelvis identified. 3. Osteopenia. 4. Severe degenerative change of the lumbar spine, sacroiliac joints, and hips. 5. Diverticulosis. This exam was performed according to our departmental dose-optimization program, which includes automated exposure control, adjustment of the mA and/or kV according to patient size and/or use of iterative reconstruction technique. Pelvis CT 12/15/17 00:40 IMPRESSION: 1. Age-indeterminate compression deformities of the T12, L1, and L2 vertebral bodies as detailed above without evidence of acuity by CT criteria. If the patient has severe back pain or point tenderness at these locations MRI could provide more complete characterization for acute compression fracture. 2. No acute fracture the pelvis identified. 3. Osteopenia. 4. Severe degenerative change of the lumbar spine, sacroiliac joints, and hips. 5. Diverticulosis. This exam was performed according to our departmental dose-optimization program, which includes automated exposure control, adjustment of the mA and/or kV according to patient size and/or use of iterative reconstruction technique. Lumbar Spine MRI 12/18/17 00:00 IMPRESSION: Small moderate multilevel desiccated-protrusive disc disease. No significant thecal sac or nerve root compression. Moderate L2 compression deformity consistent with CT from three days prior. Assessment & Plan - Diagnosis (1) Lumbar radiculopathy, acute Is this a current diagnosis for this admission?: Yes Plan: Increase gabapentin to 300 mg every 8. We will add Voltaren 50 mg every 12. Continue physical therapy. Discharge planning for hopefully Monday Garcia. Hydrocodone for severe breakthrough pain. Patient will need to be discharged in order to get epidural injections as an outpatient. (2) Muscle spasm of left lower extremity Is this a current diagnosis for this admission?: Yes Plan: As above continue Zanaflex. (3) Morbid obesity Is this a current diagnosis for this admission?: Yes Plan: Counseled - Time Time Spent with patient: 25-34 minutes Total Critical Time (Minutes): 15 Medications reviewed and adjusted accordingly: Yes Anticipated discharge: Acute Rehab Within: when bed available
[2017-12-22] MEDS: DICLOFENAC SODIUM 50 MG TABLET.DR PO SCH (17:57)
[2017-12-22] MEDS: GABAPENTIN 300 MG CAPSULE PO SCH (22:27)
[2017-12-23] MEDS: HYDROCODONE/ACETAMINOPHEN 5-325 MG TABLET PO PRN ×3 (00:50→17:54)
[2017-12-23] MEDS: TIZANIDINE HCL 4 MG TABLET PO PRN ×3 (05:22→21:05)
[2017-12-23] MEDS: GABAPENTIN 300 MG CAPSULE PO SCH ×3 (05:22→21:05)
[2017-12-23] MEDS: LANSOPRAZOLE 30 MG TAB.RAP.DR PO SCH (05:22)
[2017-12-23] MEDS: ENOXAPARIN SODIUM INJ 40 MG/0.4 ML DISP.SYRIN SUBCUT SCH (10:43)
[2017-12-23] MEDS: DICLOFENAC SODIUM 50 MG TABLET.DR PO SCH ×2 (10:43→17:52)
[2017-12-23] MEDS: CHOLECALCIFEROL (D3) 1,000 UNIT TABLET PO SCH (10:43)
[2017-12-23] MEDS: PRAMIPEXOLE DI-HCL 0.5 MG TABLET PO SCH ×3 (10:43→17:53)
[2017-12-23] MEDS: POLYETHYLENE GLYCOL 3350 POWDER 17 GM/1 PACKET PO SCH (10:43)
[2017-12-23] MEDS: MULTIVITAMIN TABLET PO SCH (12:52)
--- NOTE | 2017-12-23 15:41 | PDOC PROGRESS REPORT ---
Subjective Progress Note for:: 12/23/17 - seen on rounds this morning Subjective:: States she is feeling much better than she did yesterday. States the pain medications are helping. Denies chest pain, shortness of breath or abdominal pain/nausea/vomiting. Reason For Visit: SCOLIOSIS, LEFT LEG WEAKNESS Physical Exam Vital Signs: Temp Pulse Resp BP Pulse Ox 98.1 F 80 19 147/51 H 98 12/23/17 11:23 12/23/17 11:23 12/23/17 11:23 12/23/17 11:23 12/23/17 11:23 Intake & Output 12/22/17 12/23/17 12/24/17 06:59 06:59 06:59 Intake Total 1270 1500 Output Total 1200 400 Balance 70 1100 Weight 225 lb 4.999 oz 237 lb 14.06 oz General appearance: PRESENT: no acute distress, morbidly obese Head exam: PRESENT: atraumatic, normocephalic Eye exam: PRESENT: EOMI, other - Conjunctivae clear Mouth exam: PRESENT: tongue midline Respiratory exam: PRESENT: decreased breath sounds, symmetrical, other - Decreased breath sounds most likely secondary to her body habitus Cardiovascular exam: PRESENT: RRR, +S1 - he probably is her body habitus, +S2, systolic murmur Pulses: PRESENT: +2 pedal pulses bilateral GI/Abdominal exam: PRESENT: normal bowel sounds, soft, other - Nontender Extremities exam: PRESENT: other - Nontender calf Neurological exam: PRESENT: alert, awake, CN II-XII grossly intact Results Laboratory Results: 12/22/17 04:03 12/22/17 04:03 Impressions: Chest X-Ray 12/14/17 21:31 IMPRESSION: No active disease. Hip X-Ray 12/14/17 22:59 IMPRESSION: No acute fracture identified. 2010 [employer]- All Rights Reserved Lumbar Spine CT 12/15/17 00:40 IMPRESSION: 1. Age-indeterminate compression deformities of the T12, L1, and L2 vertebral bodies as detailed above without evidence of acuity by CT criteria. If the patient has severe back pain or point tenderness at these locations MRI could provide more complete characterization for acute compression fracture. 2. No acute fracture the pelvis identified. 3. Osteopenia. 4. Severe degenerative change of the lumbar spine, sacroiliac joints, and hips. 5. Diverticulosis. This exam was performed according to our departmental dose-optimization program, which includes automated exposure control, adjustment of the mA and/or kV according to patient size and/or use of iterative reconstruction technique. Pelvis CT 12/15/17 00:40 IMPRESSION: 1. Age-indeterminate compression deformities of the T12, L1, and L2 vertebral bodies as detailed above without evidence of acuity by CT criteria. If the patient has severe back pain or point tenderness at these locations MRI could provide more complete characterization for acute compression fracture. 2. No acute fracture the pelvis identified. 3. Osteopenia. 4. Severe degenerative change of the lumbar spine, sacroiliac joints, and hips. 5. Diverticulosis. This exam was performed according to our departmental dose-optimization program, which includes automated exposure control, adjustment of the mA and/or kV according to patient size and/or use of iterative reconstruction technique. Lumbar Spine MRI 12/18/17 00:00 IMPRESSION: Small moderate multilevel desiccated-protrusive disc disease. No significant thecal sac or nerve root compression. Moderate L2 compression deformity consistent with CT from three days prior. Assessment & Plan - Diagnosis (1) Lumbar radiculopathy, acute Is this a current diagnosis for this admission?: Yes Plan: Most likely secondary to her disc herniation seen on MRI. Continue pain medicines with the current regimen. She states she feels better today than she did yesterday. Plan to discharge her to rehab on Monday. She is planning on getting epidural injection as an outpatient. (2) Morbid obesity Is this a current diagnosis for this admission?: Yes Plan: Discussed with patient about weight loss and appropriate diet. She is aware and verbalized understanding (3) Muscle spasm of left lower extremity Is this a current diagnosis for this admission?: Yes Plan: Continue with Zanaflex and gabapentin (4) Restless leg syndrome Is this a current diagnosis for this admission?: Yes Plan: Continue with Zanaflex - Plan Summary Plan Summary: Continue with current regimen for pain control and physical therapy. She will be going to rehab at [facility] on Monday. She is planning on getting epidural injection as an outpatient.
[2017-12-24] MEDS: HYDROCODONE/ACETAMINOPHEN 5-325 MG TABLET PO PRN ×4 (02:44→21:32)
[2017-12-24] MEDS: LANSOPRAZOLE 30 MG TAB.RAP.DR PO SCH (05:42)
[2017-12-24] MEDS: GABAPENTIN 300 MG CAPSULE PO SCH ×3 (05:43→21:32)
[2017-12-24] MEDS: TIZANIDINE HCL 4 MG TABLET PO PRN (05:43)
[2017-12-24] MEDS: PRAMIPEXOLE DI-HCL 0.5 MG TABLET PO SCH ×3 (09:59→18:09)
[2017-12-24] MEDS: DICLOFENAC SODIUM 50 MG TABLET.DR PO SCH ×2 (09:59→18:10)
[2017-12-24] MEDS: ENOXAPARIN SODIUM INJ 40 MG/0.4 ML DISP.SYRIN SUBCUT SCH (09:59)
[2017-12-24] MEDS: CHOLECALCIFEROL (D3) 1,000 UNIT TABLET PO SCH (09:59)
[2017-12-24] MEDS: POLYETHYLENE GLYCOL 3350 POWDER 17 GM/1 PACKET PO SCH (09:59)
[2017-12-24] MEDS: MULTIVITAMIN TABLET PO SCH (12:55)
--- NOTE | 2017-12-24 17:00 | PDOC PROGRESS REPORT ---
Subjective Progress Note for:: 12/24/17 Subjective:: states she's not sure if she wants to go to rehab, states "they have bad reviews ", "my friends said they wouldn't send their dogs there". i told her that I will have CM come speak with her about her options- she agreed Reason For Visit: SCOLIOSIS, LEFT LEG WEAKNESS Physical Exam Vital Signs: Temp Pulse Resp BP Pulse Ox 98.2 F 85 20 133/48 H 94 12/24/17 15:22 12/24/17 15:22 12/24/17 15:22 12/24/17 15:22 12/24/17 15:22 Intake & Output 12/23/17 12/24/17 12/25/17 06:59 06:59 06:59 Intake Total 1500 673 720 Output Total 400 825 Balance 1100 -152 720 Weight 237 lb 14.06 oz 238 lb 5.115 oz General appearance: PRESENT: no acute distress, morbidly obese Head exam: PRESENT: atraumatic, normocephalic Eye exam: PRESENT: EOMI. ABSENT: scleral icterus Mouth exam: PRESENT: moist, neck supple Neck exam: ABSENT: tenderness, tracheal deviation Respiratory exam: PRESENT: decreased breath sounds - likely due to body habitus and poor inspiratory effort, symmetrical Cardiovascular exam: PRESENT: +S1, +S2 Pulses: PRESENT: +2 pedal pulses bilateral GI/Abdominal exam: PRESENT: normal bowel sounds, soft. ABSENT: tenderness Musculoskeletal exam: PRESENT: full ROM, tenderness - with some pain of the knees Neurological exam: PRESENT: alert, awake, CN II-XII grossly intact Skin exam: PRESENT: dry, warm Results Laboratory Results: 12/22/17 04:03 12/22/17 04:03 Impressions: Chest X-Ray 12/14/17 21:31 IMPRESSION: No active disease. Hip X-Ray 12/14/17 22:59 IMPRESSION: No acute fracture identified. 2010 [id number]- All Rights Reserved Lumbar Spine CT 12/15/17 00:40 IMPRESSION: 1. Age-indeterminate compression deformities of the T12, L1, and L2 vertebral bodies as detailed above without evidence of acuity by CT criteria. If the patient has severe back pain or point tenderness at these locations MRI could provide more complete characterization for acute compression fracture. 2. No acute fracture the pelvis identified. 3. Osteopenia. 4. Severe degenerative change of the lumbar spine, sacroiliac joints, and hips. 5. Diverticulosis. This exam was performed according to our departmental dose-optimization program, which includes automated exposure control, adjustment of the mA and/or kV according to patient size and/or use of iterative reconstruction technique. Pelvis CT 12/15/17 00:40 IMPRESSION: 1. Age-indeterminate compression deformities of the T12, L1, and L2 vertebral bodies as detailed above without evidence of acuity by CT criteria. If the patient has severe back pain or point tenderness at these locations MRI could provide more complete characterization for acute compression fracture. 2. No acute fracture the pelvis identified. 3. Osteopenia. 4. Severe degenerative change of the lumbar spine, sacroiliac joints, and hips. 5. Diverticulosis. This exam was performed according to our departmental dose-optimization program, which includes automated exposure control, adjustment of the mA and/or kV according to patient size and/or use of iterative reconstruction technique. Lumbar Spine MRI 12/18/17 00:00 IMPRESSION: Small moderate multilevel desiccated-protrusive disc disease. No significant thecal sac or nerve root compression. Moderate L2 compression deformity consistent with CT from three days prior. Assessment & Plan - Diagnosis (1) Lumbar radiculopathy, acute Is this a current diagnosis for this admission?: Yes Plan: Most likely secondary to her disc herniation seen on MRI. Continue pain medicines with the current regimen. she showed some concern about going to rehab today- tells me that she's re-thinking since her friends told her the rehab place is not good- i have asked to come speak with her today (2) Morbid obesity Is this a current diagnosis for this admission?: Yes Plan: I spoke to her again about her weight and diet/lifestyle modifications- She is aware and verbalized understanding (3) Muscle spasm of left lower extremity Is this a current diagnosis for this admission?: Yes Plan: Continue with Zanaflex and gabapentin- and pain meds (4) Restless leg syndrome Is this a current diagnosis for this admission?: Yes Plan: Continue with Zanaflex - Plan Summary Plan Summary: possible D/C in AM to rehab if she agrees- she will discuss with CM today
[2017-12-25] MEDS: LANSOPRAZOLE 30 MG TAB.RAP.DR PO SCH (05:25)
[2017-12-25] MEDS: GABAPENTIN 300 MG CAPSULE PO SCH ×3 (05:25→21:22)
[2017-12-25] MEDS: PRAMIPEXOLE DI-HCL 0.5 MG TABLET PO SCH ×3 (08:53→18:06)
[2017-12-25] MEDS: DICLOFENAC SODIUM 50 MG TABLET.DR PO SCH ×2 (08:53→18:06)
[2017-12-25] MEDS: CHOLECALCIFEROL (D3) 1,000 UNIT TABLET PO SCH (08:53)
[2017-12-25] MEDS: POLYETHYLENE GLYCOL 3350 POWDER 17 GM/1 PACKET PO SCH (08:55)
[2017-12-25] MEDS: ENOXAPARIN SODIUM INJ 40 MG/0.4 ML DISP.SYRIN SUBCUT SCH (08:55)
[2017-12-25] MEDS: MULTIVITAMIN TABLET PO SCH (13:42)
--- NOTE | 2017-12-25 16:00 | PDOC PROGRESS REPORT ---
Subjective Progress Note for:: 12/25/17 - Patient seen on rounds this morning Subjective:: Patient states that she feels better with her legs and is asking me if she can go home. Initially she had wanted to go to rehab and then yesterday she said she did not want to go to rehab and wants to go home. Yesterday afternoon when case management spoke with her she again agreed to go to rehab. This morning she states that she can stay one day she will try to walk and if he does well today then she will want to go home tomorrow and does not want to go to rehab. I asked her why she does not want to go to rehab-she states that people have told her that it is not a nice place to stay and hence she does not want to go. Reason For Visit: SCOLIOSIS, LEFT LEG WEAKNESS Physical Exam Vital Signs: Temp Pulse Resp BP Pulse Ox 98.2 F 79 18 145/57 H 91 L 12/25/17 11:18 12/25/17 11:18 12/25/17 11:18 12/25/17 11:18 12/25/17 11:18 Intake & Output 12/24/17 12/25/17 12/26/17 06:59 06:59 06:59 Intake Total 673 960 Output Total 825 Balance -152 960 Weight 238 lb 5.115 oz 240 lb 1.334 oz General appearance: PRESENT: no acute distress, morbidly obese Head exam: PRESENT: atraumatic, normocephalic Eye exam: PRESENT: EOMI. ABSENT: scleral icterus Ear exam: PRESENT: normal external ear exam Neck exam: ABSENT: tenderness, tracheal deviation Respiratory exam: PRESENT: clear to auscultation fabrice, symmetrical Cardiovascular exam: PRESENT: +S1, +S2 Pulses: PRESENT: +2 pedal pulses bilateral GI/Abdominal exam: PRESENT: normal bowel sounds, soft. ABSENT: tenderness Musculoskeletal exam: PRESENT: full ROM. ABSENT: tenderness Neurological exam: PRESENT: alert, awake, oriented to person, oriented to place , oriented to time, CN II-XII grossly intact Skin exam: PRESENT: dry, warm Results Laboratory Results: 12/22/17 04:03 12/22/17 04:03 Impressions: Chest X-Ray 12/14/17 21:31 IMPRESSION: No active disease. Hip X-Ray 12/14/17 22:59 IMPRESSION: No acute fracture identified. 2010 [employer]- All Rights Reserved Lumbar Spine CT 12/15/17 00:40 IMPRESSION: 1. Age-indeterminate compression deformities of the T12, L1, and L2 vertebral bodies as detailed above without evidence of acuity by CT criteria. If the patient has severe back pain or point tenderness at these locations MRI could provide more complete characterization for acute compression fracture. 2. No acute fracture the pelvis identified. 3. Osteopenia. 4. Severe degenerative change of the lumbar spine, sacroiliac joints, and hips. 5. Diverticulosis. This exam was performed according to our departmental dose-optimization program, which includes automated exposure control, adjustment of the mA and/or kV according to patient size and/or use of iterative reconstruction technique. Pelvis CT 12/15/17 00:40 IMPRESSION: 1. Age-indeterminate compression deformities of the T12, L1, and L2 vertebral bodies as detailed above without evidence of acuity by CT criteria. If the patient has severe back pain or point tenderness at these locations MRI could provide more complete characterization for acute compression fracture. 2. No acute fracture the pelvis identified. 3. Osteopenia. 4. Severe degenerative change of the lumbar spine, sacroiliac joints, and hips. 5. Diverticulosis. This exam was performed according to our departmental dose-optimization program, which includes automated exposure control, adjustment of the mA and/or kV according to patient size and/or use of iterative reconstruction technique. Lumbar Spine MRI 12/18/17 00:00 IMPRESSION: Small moderate multilevel desiccated-protrusive disc disease. No significant thecal sac or nerve root compression. Moderate L2 compression deformity consistent with CT from three days prior. Assessment & Plan - Diagnosis (1) Lumbar radiculopathy, acute Is this a current diagnosis for this admission?: Yes (2) Morbid obesity Is this a current diagnosis for this admission?: Yes (3) Muscle spasm of left lower extremity Is this a current diagnosis for this admission?: Yes (4) Restless leg syndrome Is this a current diagnosis for this admission?: Yes - Plan Summary Plan Summary: Plan was to send patient to rehab today but patient is now declining and requesting the day to stay in the hospital. Patient states that she will want to see if he can walk around in the hospital today and if she does well and she wants to go home tomorrow. She told me that if she is unable to weight-bear then she will consider rehab tomorrow. I have spoken with case management and they are aware of the situation. Continue with current treatment and therapy.
[2017-12-25] MEDS: HYDROCODONE/ACETAMINOPHEN 5-325 MG TABLET PO PRN (22:42)
[2017-12-26] MEDS: LANSOPRAZOLE 30 MG TAB.RAP.DR PO SCH (05:04)
[2017-12-26] MEDS: GABAPENTIN 300 MG CAPSULE PO SCH ×2 (05:05→14:19)
[2017-12-26] MEDS: HYDROCODONE/ACETAMINOPHEN 5-325 MG TABLET PO PRN (06:50)
[2017-12-26] MEDS: CHOLECALCIFEROL (D3) 1,000 UNIT TABLET PO SCH (09:49)
[2017-12-26] MEDS: PRAMIPEXOLE DI-HCL 0.5 MG TABLET PO SCH ×3 (09:50→18:11)
[2017-12-26] MEDS: POLYETHYLENE GLYCOL 3350 POWDER 17 GM/1 PACKET PO SCH (09:52)
[2017-12-26] MEDS: DICLOFENAC SODIUM 50 MG TABLET.DR PO SCH ×2 (09:53→18:11)
[2017-12-26] MEDS: ENOXAPARIN SODIUM INJ 40 MG/0.4 ML DISP.SYRIN SUBCUT SCH (10:02)
[2017-12-26] MEDS: MULTIVITAMIN TABLET PO SCH (14:19)
[2017-12-26 16:37] VITALS: BP 137/44
--- NOTE | 2017-12-27 07:50 | DISCHARGE SUMMARY E ---
Discharge Summary NAME: MELVIN ANNE : 1940 AGE: 76Y ADMITTED: 12/17/2017 DISCHARGED: 12/26/2017 CODE STATUS: FULL CODE. PRIMARY CARE PROVIDER: MALIK Ward. DISCHARGE DIAGNOSES: 1. ACUTE LUMBAR RADICULOPATHY. 2. MORBID OBESITY. 3. MUSCLE SPASM OF THE LOWER EXTREMITIES. 4. RESTLESS LEG SYNDROME. DISCHARGE MEDICATIONS: 1. Neurontin 300 mg p.o. q.8 hours. 2. Lasix 20 mg p.o. daily. 3. Vitamin D3 1000 mcg p.o. daily. 4. [place] 5/325 mg 1 tablet p.o. q.8 hours p.r.n. 5. Multivitamin 1 tablet p.o. daily. 6. Potassium chloride 10 mEq daily. 7. Mirapex 1.5 mg p.o. 3 times a day. 8. Zanaflex 4 mg p.o. q.8 hours p.r.n. DISCHARGE INSTRUCTIONS: 1. Diet as tolerated. 2. Activities as tolerated. 3. Home health physical therapy. CONDITION: Fair. DIAGNOSTICS: Hematology on 12/22/2017: WBC 4.0, hemoglobin 10.5, hematocrit, platelet count 287,000. Chemistries obtained on 12/22/2017: Sodium 139, potassium 4.8, chloride 99, BUN 25, creatinine 0.66, glucose 103, calcium 9.5, phosphorus 3.6, magnesium 2.0, bilirubin 0.3, AST 28, ALT 27, alkaline phosphatase 65. CK 48, CK-MB 338, total protein 7.3, albumin 4.0, TSH 2.6. Chest x-ray obtained on 12/14/2017 revealed no active disease. Venous Doppler study obtained on 12/14/2017 revealed no evidence of DVT or obstruction of the left lower extremity or the right common femoral vein. Hip x-ray obtained on 12/14/2017 revealed no acute fracture identified. Lumbar spine CT obtained on 12/15/2017 revealed compression deformities of T12, L1 and L2 vertebral bodies without evidence of acute stenosis by CT criteria. Osteopenia with severe degenerative changes of the lumbar spine, joints and hips and diverticulosis. Pelvis CT obtained on 12/15/2017 revealed as per the above. Lumbar spine MRI obtained on 12/18/2017 revealed a small moderate multilevel desiccated protruded disk disease. No significant sacral nerve root compression. Moderate L2 compression deformity consistent with CT from 3 days prior. PHYSICAL EXAMINATION: GENERAL: The patient is a well-developed, well-nourished 76-year-old female, who is awake, alert and oriented to person, place, time and situation. She is verbal, conversational, does not appear to be in any acute distress. VITAL SIGNS: Temperature 98.6, pulse 73, respirations 18, blood pressure 136/71, oxygen saturation 94% on room air. SKIN: Warm and dry, no rash, not diaphoretic. HEENT: Pupils equal, round and reactive to light and accommodation. Conjunctivae pink. There is no evidence of JVP. CARDIOVASCULAR SYSTEM: Heart is regular. There is no murmur or rub. CHEST: Clear, symmetrical, unlabored. ABDOMEN: Soft, nontender, nondistended. BACK: No CVA tenderness or sacral edema. EXTREMITIES: No clubbing, cyanosis, edema. PSYCHIATRIC: Appropriate affect, pleasant mood. SUMMARY: The patient is a 76-year-old female with a past medical history of chronic back pain, hypertension, and obesity. The patient presented to the emergency department with the chief complaint of inability to use her left leg. The patient stated this started 2 weeks ago when she had a spasm in her left leg and then for the past 3 days, the patient was not able to walk. The patient claims her left foot is extremely rotated. The patient lives by herself and she is not able to walk. The patient stated that prior to this, she was independent of her activities of daily living. The patient denied any fall, trauma to the back, no history of respiratory tract viral infection. No fever, chills, cough, palpitations, diaphoresis, nausea, vomiting, or diarrhea. Labs and Doppler were unremarkable and the patient was referred to the hospital for admission and management. HOSPITAL COURSE: The patient was admitted to continuous telemetry unit. The patient was seen and evaluated by Dr. Cr of Pain Management and recommendations have been made for outpatient injection. The patient was seen and evaluated by Physical Therapy and was able to walk, but they have discharged and will be okay to go home with home health physical therapy. The patient is in agreement to this plan as she gotten a lot of benefit from the Neurontin. DISCHARGE PLAN: 1. The patient is advised to follow up with her primary care provider as needed. 2. The patient will follow up with Dr. Cr with Pain Management for hospital followup. TIME SPENT: On this discharge including assessment and plan, physical examination, patient education, review of records is 35 minutes. DICTATING PHYSICIAN: BASILIA MADERA NP [id number] PHY#: [id number] ID: [id number] JOB#: [id number] ACCT: [id number] cc:BASILIA MADERA NP [facility], > [facility]
== END 2017-12-26 18:31 | disposition home health service (06) | DRG 552 ==
LOC: ER 20:35 → EH 12-15 01:04 → INTOOBSV 12-15 01:04 → 5 12-15 02:30 → OBSVTOIN 12-17 12:56
PROVIDERS: ADMIT Internal Medicine; ATTEND Internal Medicine
DX: M51.16 Intervertebral disc disorders with radiculopathy, lumbar region (principal); Z68.42 Body mass index [BMI] 45.0-49.9, adult; M41.9 Scoliosis, unspecified; E66.01 Morbid (severe) obesity due to excess calories; M62.838 Other muscle spasm; G25.81 Restless legs syndrome; K57.90 Diverticulosis of intestine, part unspecified, without perforation or abscess without bleeding; I10 Essential (primary) hypertension; M85.80 Other specified disorders of bone density and structure, unspecified site; M53.3 Sacrococcygeal disorders, not elsewhere classified; M16.0 Bilateral primary osteoarthritis of hip; Z79.899 Other long term (current) drug therapy; Z95.2 Presence of prosthetic heart valve; Z90.49 Acquired absence of other specified parts of digestive tract; Z88.3 Allergy status to other anti-infective agents
CPT/HCPCS: 36415; 71045; 72131; 72148; 72192; 80048; 80053; 80069; 82550; 83735; 83880; 84100; 84443; 85025; 85027; 93971; 99285; G0378; G8978-GP; G8979-GP; J1650; J3010; J3490